=== PATIENT | male | born 1960 | race Caucasian/White ===

== ENCOUNTER 2016-08-01 03:51 | Inpatient (IN) | payer BC ==
[~2016-08-01] VITALS: Ht 172.7 cm; Wt 150.8 kg
[2016-08-01] VITALS (11 sets, daily range): BP systolic 94–119; BP diastolic 57–70
[~2016-08-01 03:51] MED LIST: AMOX-355 PO; CODE-54 PO; FURO-125 PO; GEMF600T3; HYDR-3702 PO; LISI20TA; LOSA1TAB70 PO; SULF-228 PO
[2016-08-01] MEDS ORDERED: SODIUM CHLORIDE 250 ML IV PRN (04:10)
[2016-08-01] MEDS ORDERED: SODIUM CHLORIDE FLUSH 10 ML SYR IV PRN (04:10)
[2016-08-01] MEDS ORDERED: SODIUM CHLORIDE FLUSH 3 ML SYR IV PRN (04:10)
[2016-08-01] MEDS ORDERED: ACETAMINOPHEN 500 MG TAB (TYLENOL) PO ONE (04:20)
[2016-08-01 04:54] LABS: BASOPHILS % (AUTO) 0 % (0-2); EOSINOPHILS % (AUTO) 1 % (0-4); LYMPHOCYTES # (AUTO) 0.8 X10^3; MEAN PLATELET VOLUME 10.7 FL (6.0-9.5); MONOCYTES # (AUTO) 0.6 X10^3; MONOCYTES % (AUTO) 7 % (3-11); NEUTROPHILS # (AUTO) 7.3 X10^3; NEUTROPHILS % (AUTO) 82 % (51-67); PLATELET COUNT 159 10^3uL (150-450)
[2016-08-01 04:58] LABS: MEAN CORPUSCULAR HGB CONC 31.4 g/dL (31.0-37.0); MEAN CORPUSCULAR VOLUME 105 FL (80-100)
[2016-08-01 05:10] LABS: ALBUMIN 4.2 g/dL (3.4-5.0); ALKALINE PHOSPHATASE 69 U/L (38-126); BUN/CREATININE RATIO 36 (10-20); CALCULATED IONIZED CALCIUM 3.8 mg/dL (3.8-4.6); CREATINE KINASE 171 U/L (55-170); TOTAL PROTEIN 7.3 g/dL (6.4-8.5)
--- NOTE | 2016-08-01 05:11 | NUR ---
Dr. Durham notified of elevated DDimer.
--- NOTE | 2016-08-01 06:30 | NUR ---
PT CONT ON OXYMASK. CL
--- NOTE | 2016-08-01 06:54 | NUR ---
report received & care assumed for pt. cl
--- NOTE | 2016-08-01 06:56 | NUR ---
Report given to Craig Mejia RN for continued care of pt
--- NOTE | 2016-08-01 07:00 | NUR ---
temp recheck = 96.6. pt O2 SAT 88% ON 5L/OXYMASK. O2 INCREASED TO 7L/OXYMASK. REMAINS AT BEDSIDE. PT AROUSABLE BUT LETHARGIC. ABLE TO UNDERSTAND DIRECTIONS. CL
--- NOTE | 2016-08-01 07:03 | NUR ---
STATES PT UNABLE TO GET STANDING UA BY HIMSELF SO SHE HELPED HIM OBTAIN THAT. DR LYNCH STATES HE WILL REVIEW UA FROM [facility] BEFORE WE NEED TO CATH PT TODAY. CL
[2016-08-01] MEDS ORDERED: PIPERACILLIN/TAZOBACTAM 4.5 GM in SODIUM CHLORIDE 100 ML IV ONE (07:10)
--- NOTE | 2016-08-01 07:17 | NUR ---
DR LYNCH TALKS WITH DR ROD. CL
--- NOTE | 2016-08-01 07:23 | Diagnostic Imaging Report ---
INDICATION: Weakness. FINDINGS: There is basilar atelectasis due to morbid obesity. No infiltrates are present. Heart is mildly enlarged. No evidence of pulmonary edema. No pneumothorax or pleural effusion. IMPRESSION: Bilateral basilar atelectasis. Dictated by: Dictated on workstation # [id number]
--- NOTE | 2016-08-01 07:24 | Diagnostic Imaging Report ---
PROCEDURE: CT angiography of the chest with contrast. TECHNIQUE: Multiple contiguous axial images were obtained through the chest after uneventful bolus administration of intravenous contrast. Reconstructed CTA MIP acquisitions were also performed. INDICATION: Hypoxia. FINDINGS: Study is quite limited due to large body habitus. There is suboptimal opacification of the pulmonary arteries. No evidence of emboli in the proximal branches. Distal PE cannot be excluded from this study. Mild basilar atelectasis noted bilaterally. No pneumothorax or pleural effusions. No pericardial effusions. No hilar adenopathy. IMPRESSION: Suboptimal enhancement of the pulmonary arteries. No large pulmonary emboli are noted. Could not exclude small distal PE from this study. There are no associated areas of atelectasis or infiltrate. Dictated by: Dictated on workstation # [id number]
--- NOTE | 2016-08-01 07:33 | NUR ---
UA HELD AT THIS TIME DR LYNCH STATES HE HAS REVIEWED [facility] UA & ANOTHER ONE IS NOT NEEDED TODAY. DR LYNCH TALKS WITH DR DAVENPORT RE PT ADMIT. LAB AT BEDSIDE ATTEMPTING BLOOD CULTURES. CL
--- NOTE | 2016-08-01 07:38 | NUR ---
LAB HAD BEEN HERE FOR OTHER LAB BLD CULTURES WERE PREVIOUSLY DRAWN ALREADY. CL
[2016-08-01] MEDS ORDERED: HYDROcodone/APAP 5 MG/325 MG (NORCO) TAB PO PRN ×2 (07:55→13:55)
[2016-08-01] MEDS ORDERED: PROMETHAZINE HCL INJ 12.5 MG in SODIUM CHLORIDE 25 ML IV PRN ×2 (08:00→09:00)
[2016-08-01] MEDS ORDERED: MAG HYDROX/AL HYDROX/SIMETH 200-200-20/5 ML (MAG-AL PLUS) 30 ML UDC PO PRN ×2 (08:00→14:00)
[2016-08-01] MEDS ORDERED: MAGNESIUM HYDROXIDE 80MG/ML (MILK OF MAGNESIA) 30 ML UDC PO PRN ×2 (08:00→09:00)
[2016-08-01] MEDS ORDERED: KETOROLAC 15 MG/ML (TORADOL) 1 ML VIAL IV PRN (08:00)
[2016-08-01] MEDS ORDERED: ONDANSETRON 4 MG (ZOFRAN) ORAL DISSOLVE TAB PO PRN ×2 (08:00→14:00)
[2016-08-01] MEDS ORDERED: POLYETHYLENE GLYCOL 17 GM (MIRALAX) PACKET PO PRN ×2 (08:00→09:00)
[2016-08-01] MEDS ORDERED: ACETAMINOPHEN 325 MG TAB (TYLENOL) PO PRN ×2 (08:00→14:00)
[2016-08-01] MEDS ORDERED: CALCIUM CARBONATE CHEWABLE 300 MG (TUMS) TABLET PO PRN ×2 (08:00→16:00)
[2016-08-01] MEDS ORDERED: DOCUSATE SODIUM 100 MG (COLACE) CAP PO PRN ×2 (08:00→09:00)
--- NOTE | 2016-08-01 08:05 | NUR ---
Pt admitted to room 317 via cart from ED, accompanied by and HANNAH Escamilla. O2 @7L oxymask. see admission datatbase.
[2016-08-01] MEDS ORDERED: ALBUTEROL 0.083% NEB SOLUTION 2.5 MG/3 ML VIAL INH PRN ×2 (08:15→12:15)
[2016-08-01] MEDS ORDERED: VANCOMYCIN PHARMACY PROTOCOL IV SCH ×2 (08:35)
[2016-08-01] MEDS ORDERED: VANCOMYCIN 1,000 MG in SODIUM CHLORIDE 250 ML IV ONE (08:35)
--- NOTE | 2016-08-01 08:40 | NUR ---
To room 345 per bed - transfer slide board to move to ICU bed - belongings sent - RT in room c BiPAP applied - see RT flowsheet - O2 75% - O2 sat 98% - no verbal response - tearful
--- NOTE | 2016-08-01 08:48 | History and Physical (E) ---
History & Physical PCP: Leatha Berry MD CC: Tooth infection, dyspnea, fever HPI Francisco Batres is a 56 year old male admitted from ED 08/01 where he presented for the second time in two days. On this visit, he was brought from home via EMS. 07/31 he was sen for tooth infection, and he was noted then to have hypoxia. He was given antibiotic for the tooth infectiona nd was prescribed oxygen for hypoxia but since leaving ED he has had further chills and has had low SpO2 at home reportedly. In ED this visit, temp 103.8, HR 115, RR 20, SpO2 initially 75%. WBC was not elevated but he had 82% N. Chemistry fairly unremarkable but CRP was 25.50. Pro-BNP 484. Troponin normal. Urine was not checked. CXR showed poor penetration, poor inspiration, left heart border is somewhat obscured. X-ray from the day prior was interpreted as having no focal pneumonia. CT chest angio was performed. On arrival to unit, resting in bed, He stirs to exam but appears tired with elevated work of breathing and he as a bit of trouble attending conversation, nodding off easily. reports he has slept poorly in the last few days. He does have a CPAP machine at home but reportedly hasn't been wearing... says they were instructed by Dr. Bowers that he should stop using it after a few weeks. provides some history. Regarding tooth infection, he had onset of symptoms 07/28. Had some pain. The next morning, she went to pharmacy and got some Ambisol. Affected tooth is left lower molar. Pain did not improve so he came to ER. (Had not called a dentist but says they plan to call [facility].) Has had fever/chills at home. Has not had drainage or pus from infected tooth. Denies pain in neck. Noted he has plethoric facies, non-productive cough, wheezing, and increased work of breathing. says breathing problems seemed to only just start yesterday. Cough has been ongoing that is worsening x 2-3 months. No prior diagnosis of asthma or COPD. Has never had PFT. Noted that he had ABG showing pCO2 of 60 yesterday but this wasn't addressed. PMH * BLE Edema * Dental abscess * Dyspnea * Cough * MADAN on CPAP * HTN PSH * Hernia repair ALLERGIES: Please see list at end of report. HOME MEDICATIONS: Please see list at end of report. FH Mom of liver cancer. Father of stroke. SH Lives with in [place]. No children. 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 Never smoker. No alcohol or drug use. ROS CONSTITUTION: Weight has been stable. HEENT: No change in vision or hearing. No sores in mouth, sore throat. Dental issues per HPI, exam. CV: No chest pain, palpitations. PULM: Per HPI, exam. GI: No upset stomach, nausea, vomiting, constipation, or diarrhea. No blood in stool. : No dysuria. No blood in urine. MS: No new muscle or joint aches and pains. NEURO: No numbness or tingling. No weakness. INTEG: No rashes, lesions, or sores. ENDO: No heat or cold intolerance. No polydipsia or polyuria. HEME/LYMPH: No easy bruising or bleeding. No swollen glands. PSYCH: No change in mood or behavior. OBJECTIVE Vital Signs Date Time Temp Pulse Resp B/P Pulse Ox O2 Delivery O2 Flow Rate FiO2 08/01/16 06:31 94 OxyMask 5 08/01/16 05:32 97.6 08/01/16 05:30 104 20 109/75 GEN: Somnolent. Nods off readily during exam. Respiratory distress. HEENT: Eyes closed but on exam, EOMI, pupils reactive. Plethoric facies. Thick neck. Dusky lips. Somewhat dry oral mucosa. Difficult to obtain oral exam because of somnolence but he has halitosis. CV: Tachy but regular without significant murmur. LUNGS: Diminished throughout with rales in right base. ABD: Morbidly obese but abdomen is soft, not apparently tender. Active bowel sounds. EXTR: 2+ BLE pitting edema without chronic venous stasis changes. INTEG: No rash. Plethora of face. Integument is warm, dry, well-perfused. NEURO: No focal motor neuro deficit but psychomotor slowing. Somnolent, Stirs to exam but has difficulty staying away. Laboratory Results-14 Days 08/01/16 04:30: Activated Partial Thromboplast Time 31.0, Alanine Aminotransferase (ALT/SGPT) 41 , Albumin 4.2, Albumin/Globulin Ratio 1.354, Alkaline Phosphatase 69, Anion Gap 8.0, Aspartate Amino Transf (AST/SGOT) 30, BUN/Creatinine Ratio 36H, Basophils # (Auto) 0.0, Basophils (%) (Auto) 0, Blood Urea Nitrogen 24H, C-Reactive Protein 25.50H, Calcium Level 8.7L, Calcium/Ionized Calcium Ratio 3.8, Calculated Osmolality 273L, Carbon Dioxide Level 38H, Chloride Level 92L, Creatine Kinase MB 1.7, Creatinine 0.66L, D-Dimer 1331*H, Eosinophils # (Auto) 0.0, Eosinophils (%) (Auto) 1, Estimat Glomerular Filtration Rate 151.6, Estimated GFR (Non- 125.3, Glucose Level 137#H, Hematocrit 52.30H, Hemoglobin 16.4, Lymphocytes # (Auto) 0.8, Lymphocytes (%) (Auto) 9L, Mean Corpuscular Hemoglobin 33.0, Mean Corpuscular Hemoglobin Concent 31.4, Mean Corpuscular Volume 105H, Mean Platelet Volume 10.7H, Monocytes # (Auto) 0.6 , Monocytes (%) (Auto) 7, PH-Qpl-L-Type Natriuretic Peptide 484H, Neutrophils # (Auto) 7.3, Neutrophils (%) (Auto) 82H, Platelet Count 159, Potassium Level 4.6 , Prothromb Time International Ratio 1.1, Prothrombin Time 12.8H, Red Blood Count 4.97, Red Cell Distribution Width 13.7, Sodium Level 138, Total Bilirubin 0.9, Total Creatine Kinase 171H, Total Protein 7.3, Troponin I < 0.012, White Blood Count 8.80 08/01: ABG: pH 7.18, pCO2 106, pO2 81 MICRO 08/01 Blood culture PENDING 07/31 Blood culture Negative to date IMAGING 08/01/2016 CT CHEST ANGIO PRELIM: IMPRESSION: No evidence of central or proximal pulmonary embolism. Evaluation of distal branches is limited by artifact. Enlarged pulmonary artery may be seen in the setting of pulmonary hypertension. Low lung volumes. Elevated right hemidiaphragm. No airspace consolidation. No pleural or pericardial effusion. No aortic aneurysm or dissection. 08/01/2016 CXR: PENDING 07/31/16 CHEST PA/LAT (2 VIEW)* INDICATION: Weakness and shortness of breath. COMPARISON: None. FINDINGS: 2 views of the chest are obtained. Lung volumes are low. Heart size is enlarged. There is mild prominence of pulmonary venous structures. There is no pneumothorax or pleural fluid. There is moderate elevation of the right hemidiaphragm. No focal pneumonia is suspected. Osseous structures appear unremarkable. IMPRESSION: 1. Low lung volumes and elevation of the right hemidiaphragm. 2. Cardiomegaly without evidence of failure. 3. No focal pneumonia or other acute abnormality is suspected. ASSESSMENT Francisco Batres is a 56 year old male admitted from ED 08/01 with acute hypoxic hypercapnic respiratory failure with SIRS/sepsis attributed to dental infection but also possible CAP. He likely has underlying COPD, has poorly treated MADAN, and probably has obesity hypoventilation syndrome. He has other chronic problems. PLAN * SIRS/Sepsis: Treating underlying causes including dental abscess but possibly CAP. * Acute Hypoxic, Hypercapneic Respiratory Failure: Emergent transfer to ICU. Trial of bipap. ABG in 1 hour. If not significantly improved, intubate. * Community Acquired Pneumonia: Clinical diagnosis on the basis of sepsis findings, respiratory failure, cough. Treat COPD exacerbation. Guaifenesin. Empiric pip-tazo and vanco. * COPD with Acute Exacerbation: Clinical diagnosis on the basis of history. Duoneb scheduled, albuterol PRN. Guaifenesin. Methylprednisolone with transition to prednisone. * Dental Infection: Blood culture negative to date. New culture obtained 08/01. Had been prescribed amox/clav 07/31. In ED 08/01, received pip-tazo and ceftriaxone. Continued IV antibiotic as noted above. * Altered Mental Status: Due to respiratory failure. * Dental Pain: Hydrocodone/acetaminophen on hold. Narcotic on hold due to sedated status. * Fever: Acetaminophen * Pulmonary Hypertension: Continue oxygen. Check echo. * BLE Edema: Uncertain etiology. Minimal evidence for heart failure based on CXR , pro-BNP. Check echo. Compression hose. Diuresis deferred due to NPO status. * F/E/N: NPO due to respiratory failure. IVF. Peripheral IV. * Prophylaxis: Enoxaparin * Code Status: Full * Dispo: Inpatient. Immediately transferred to ICU for respiratory failure. CHRONIC ISSUES * MADAN: CPAP/BiPAP * HTN: Losartan, HCTZ on hold. Allergies/Home Medications Allergies: Coded Allergies: No Known Drug Allergies (Unverified , 06/17/13) Reported Home Medications Scheduled Amoxicillin/Clavulanate Potassium (Augmentin 500mg/125mg) 1 EACH PO 3 times a day Furosemide (Lasix) 20 MG PO DAILY (Reported) Losartan/Hydrochlorothiazide (Losartan-HCTZ 100-25 mg Tab) 1 EACH PO DAILY ( Reported) Scheduled PRN Hydrocodone/Acetaminophen ([place] 5mg/325mg) 1-2 TAB PO Q6H PRN PRN PAIN Discontinued Medications Acetaminophen/Codeine (Tylenol W/Codeine #3 (300mg/30mg)) 1 TAB PO Q6H Discontinued Reason: Course completed Gemfibrozil (Gemfibrozil) (Reported) Discontinued Reason: Course completed Lisinopril (Prinivil 20 mg) (Reported) Discontinued Reason: Course completed Trimethoprim/Sulfamethoxazole (Bactrim Ds) 1 EA PO BID Discontinued Reason: Course completed Copies to: End of Report . EBONI ROD MD Aug 01, 2016 07:29
--- NOTE | 2016-08-01 08:55 | NUR ---
Dr Real in room - LS dim throughout anteriorly - responds to painful stimuli - O2 sat 98%
[2016-08-01] MEDS ORDERED: HYDROCHLOROTHIAZIDE 25 MG (HCTZ) TAB PO SCH (09:00)
[2016-08-01] MEDS ORDERED: guaiFENesin ER 600 MG (MUCINEX) TAB PO SCH (09:00)
[2016-08-01] MEDS ORDERED: LOSARTAN 100 MG (COZAAR) TABLET PO SCH (09:00)
[2016-08-01] MEDS ORDERED: ENOXAPARIN 40 MG/0.4 ML (LOVENOX) SYR SC SCH ×2 (09:00)
[2016-08-01] MEDS: guaiFENesin ER 600 MG (MUCINEX) TAB PO SCH ×2 (09:00→20:53)
[2016-08-01 09:01] LABS: ABG PCO2 106 mmHg (35-45); ABG PH 7.18 (7.35-7.45); ABG PO2 81 mmHg (80-105)
[2016-08-01 09:02] LABS: ABG OXYGEN SATURATION 91 % (95-98)
--- NOTE | 2016-08-01 09:03 | NUR ---
NS hung to infuse @ 125 mL/hr per [facility]
[2016-08-01] MEDS: methylPREDNISolone 125 MG (Solu-MEDROL) VIAL IV SCH ×2 (09:11→20:52)
--- NOTE | 2016-08-01 09:11 | NUR ---
Solu - Medrol 125 mg IV push over 3 minutes
[2016-08-01] MEDS: ALBUTEROL/IPRATROPIUM 3MG-0.5MG/3ML (DUONEB) NEB VIAL INH SCH ×3 (09:15→21:09)
[2016-08-01] MEDS ORDERED: VANCOMYCIN COMPOUNDED BY PHARMACY IV SCH (09:15)
--- NOTE | 2016-08-01 09:18 | NUR ---
Vancomycin Dosing: Pharmacy managed S: SIRS/Sepsis: Attributed to dental abcess, possibly pneumonia. Cultures pending. Empirically treating with Pip/Tazo and vancomycin. O: 56y/o M, wt = 154 kg, SCr = 0.66 CrCl = >150 ml/min A/P: Vancomycin 2000mg IV q8hr. Predicted trough of 16.3 mcg/mL for therapeutic goal of 15-20mcg/ml. Trough to be drawn before 5th dose (08-02-16 @ 1730). Will monitor and adjust if needed.
[2016-08-01] MEDS: VANCOMYCIN 2000 MG in NS IV 480 ML IV SCH ×2 (09:29→17:59)
--- NOTE | 2016-08-01 09:29 | NUR ---
Vanco 2 gm IV to infuse @ 165 mL/hr
--- NOTE | 2016-08-01 09:40 | NUR ---
#16 Little inserted - see intervention
--- NOTE | 2016-08-01 10:00 | NUR ---
BiPAP O2 decreased to 70%
[2016-08-01 10:19] LABS: ABG OXYGEN SATURATION 96 % (95-98); ABG PCO2 92 mmHg (35-45); ABG PH 7.28 (7.35-7.45); ABG PO2 95 mmHg (80-105)
[2016-08-01 10:29] LABS: BILIRUBIN,URINE Negative (Negative); CLARITY,URINE Clear; COLOR,URINE Yellow; GLUCOSE, URINE (UA) Negative (Negative); LEUKOCYTE ESTERASE ,URINE Negative (Negative); PH,URINE 5.5 (5.0 - 8.0); UROBILINOGEN,URINE 0.2 mg/dL (0.2-1.0)
--- NOTE | 2016-08-01 10:32 | NUR ---
MED REC COMPLETED-current med list obtained from Ext Med History application.
[2016-08-01 10:52] LABS: URINE CENTRIFUGED VOLUME 12 mL
[2016-08-01] MEDS ORDERED: ALBUTEROL/IPRATROPIUM 3MG-0.5MG/3ML (DUONEB) NEB VIAL INH SCH (11:00)
[2016-08-01] MEDS ORDERED: SODIUM CHLORIDE IV SCH (12:00)
[2016-08-01] MEDS ORDERED: SULBACTAM IV SCH (12:00)
[2016-08-01] MEDS ORDERED: AMPICILLIN IV SCH (12:00)
[2016-08-01 12:58] LABS: ALBUMIN 4.1 g/dL (3.4-5.0); PHOSPHORUS 4.3 mg/dL (2.4-4.9)
[2016-08-01 13:06] LABS: ANION GAP 12.9 MEQ/L (3-15)
[2016-08-01] MEDS: PIPERACILLIN/TAZOBACTAM 4.5 GM in SODIUM CHLORIDE 100 ML IV SCH ×2 (14:29→21:47)
--- NOTE | 2016-08-01 14:30 | NUR ---
Cares --> diaphoretic --> linens soaked - repositioned --- BiPAP off due to coughing up copious amounts or tenacious light yellow secretions - O2 sats decrease rapidly while mask off face - RT in room O2 applied per mask during cares - linens changed - repositioned in bed - in room offering support and helping orient patient - Little draining dark reddish boothe yellow urine - reports "I can always tell when he has a urinary tract infection his urine gets real yellow" -- hollers out "I need to pee"
[2016-08-01] MEDS: KETOROLAC 15 MG/ML (TORADOL) 1 ML VIAL IV PRN (16:18)
--- NOTE | 2016-08-01 16:25 | NUR ---
Toradol 15 mg slow IV push for restlessness and diaphoretic - @ bedside
[2016-08-02] VITALS (9 sets, daily range): BP systolic 91–115; BP diastolic 52–69
--- NOTE | 2016-08-02 00:33 | NUR ---
re evaluated patient when doing oral care and repositioning. patient readily awakened and was able to tell me where he was, the year, and why he was in the hospital. he said he was tired but in no pain, patient also denied shortness of breath or chest pain.
[2016-08-02] MEDS: VANCOMYCIN 2000 MG in NS IV 480 ML IV SCH ×3 (01:41→18:00)
[2016-08-02] MEDS: ALBUTEROL/IPRATROPIUM 3MG-0.5MG/3ML (DUONEB) NEB VIAL INH SCH ×4 (03:02→22:19)
[2016-08-02] MEDS ORDERED: SODIUM CHLORIDE FLUSH 3 ML SYR IV PRN ×2 (04:10)
[2016-08-02] MEDS ORDERED: SODIUM CHLORIDE FLUSH 10 ML SYR IV PRN (04:10)
[2016-08-02] MEDS: PIPERACILLIN/TAZOBACTAM 4.5 GM in SODIUM CHLORIDE 100 ML IV SCH ×2 (05:54→14:44)
[2016-08-02 06:09] LABS: ABG PH 7.19 (7.35-7.45)
[2016-08-02 06:10] LABS: ABG OXYGEN SATURATION 97 % (95-98); ABG PCO2 101 mmHg (35-45); ABG PO2 117 mmHg (80-105)
[2016-08-02] MEDS: KETOROLAC 15 MG/ML (TORADOL) 1 ML VIAL IV PRN (06:29)
[2016-08-02 06:45] LABS: MEAN PLATELET VOLUME 10.2 FL (6.0-9.5); PLATELET COUNT 147 10^3uL (150-450); WHITE BLOOD COUNT 6.17 10^3uL (4.0-11.0)
[2016-08-02 06:50] LABS: MEAN CORPUSCULAR HEMOGLOBIN 32.6 PG (26.0-34.0); MEAN CORPUSCULAR HGB CONC 30.1 g/dL (31.0-37.0); MEAN CORPUSCULAR VOLUME 109 FL (80-100)
[2016-08-02 06:53] LABS: BAND NEUTROPHILS % 2 % (0-6); EOSINOPHILS % 0 % (0-4); LYMPHOCYTES # 0.4 #; MONOCYTES # 0.1 #; MONOCYTES % 1 % (3-11); RBC MORPH NORMAL (NORMAL); SEGMENTED NEUTROPHILS % 90 % (51-67); TOTAL CELLS COUNTED 100
[2016-08-02 07:17] LABS: ALBUMIN 3.8 g/dL (3.4-5.0); ANION GAP 11.5 MEQ/L (3-15); PHOSPHORUS 3.8 mg/dL (2.4-4.9)
[2016-08-02] MEDS ORDERED: HYDROcodone/APAP 5 MG/325 MG (NORCO) TAB PO PRN (08:15)
--- NOTE | 2016-08-02 08:20 | Progress Note (E) ---
Progress Note SUBJECTIVE Overnight, no major issues reported but noted this AM ABG is worse than previous. Mental status is better, though. WBC is not elevated. 90% N with 2% B. Chemistry stable though noted K = 5.0. Blood culture negative to date. Had planned transfer out of ICU but deferred due to worse ABG. Overnight physician increased iPAP from 18 to 22. On exam, he is much more alert and interactive. Despite being on BiPAP he is able to answer questions. Oriented. Complains of feeling chilled at times but has not had fever. Discussed findings, plan fo care. OBJECTIVE Vital Signs Date Time Temp Pulse Resp B/P Pulse Ox O2 Delivery O2 Flow Rate FiO2 08/02/16 05:32 87 08/02/16 04:09 97.0 16 107/69 97 Bipap machine 70.00 I & O 08/01/16 08/02/16 Cumulative From/Thru 19:00 07:00 08/01/16 04:30 - 08/02/16 06:01 Intake Total 762 ml 2000 ml 2762 ml Output Total 550 ml 900 ml 1450 ml Balance 212 ml 1100 ml 1312 ml GEN: More alert and interactive. Tolerating BiPAP well. HEENT: EOMI, pupils reactive. Plethoric facies. Thick neck. Somewhat dry oral mucosa. Halitosis CV: Tachycardia resolved. Distant heart sounds. SR on tele. LUNGS: Diminished throughout.No audible rales. ABD: Morbidly obese, mildly distended, but abdomen is soft, not apparently tender. Active bowel sounds. EXTR: 2+ BLE pitting edema without chronic venous stasis changes. INTEG: No rash. Plethora of face. Integument is warm, dry, well-perfused. NEURO: No focal motor neuro deficit. Lab-Past 14 Days, 35 Results 08/01/16 04:30: Activated Partial Thromboplast Time 31.0, Alanine Aminotransferase (ALT/SGPT) 41 , Albumin 4.2, Albumin/Globulin Ratio 1.354, Alkaline Phosphatase 69, Anion Gap 8.0, Aspartate Amino Transf (AST/SGOT) 30, BUN/Creatinine Ratio 36H, Basophils # (Auto) 0.0, Basophils (%) (Auto) 0, Blood Urea Nitrogen 24H, C-Reactive Protein 25.50H, Calcium Level 8.7L, Calcium/Ionized Calcium Ratio 3.8, Calculated Osmolality 273L, Carbon Dioxide Level 38H, Chloride Level 92L, Creatine Kinase MB 1.7, Creatinine 0.66L, D-Dimer 1331*H, Eosinophils # (Auto) 0.0, Eosinophils (%) (Auto) 1, Estimat Glomerular Filtration Rate 151.6, Estimated GFR (Non- 125.3, Glucose Level 137#H, Hematocrit 52.30H, Hemoglobin 16.4, Lymphocytes # (Auto) 0.8, Lymphocytes (%) (Auto) 9L, Mean Corpuscular Hemoglobin 33.0, Mean Corpuscular Hemoglobin Concent 31.4, Mean Corpuscular Volume 105H, Mean Platelet Volume 10.7H, Monocytes # (Auto) 0.6 , Monocytes (%) (Auto) 7, MD-Yrx-J-Type Natriuretic Peptide 484H, Neutrophils # (Auto) 7.3, Neutrophils (%) (Auto) 82H, Platelet Count 159, Potassium Level 4.6 , Prothromb Time International Ratio 1.1, Prothrombin Time 12.8H, Red Blood Count 4.97, Red Cell Distribution Width 13.7, Sodium Level 138, Total Bilirubin 0.9, Total Creatine Kinase 171H, Total Protein 7.3, Troponin I < 0.012, White Blood Count 8.80 08/01/16 07:47: Lactic Acid Level 0.7 08/01/16 08:12: Gagandeep Test n/a, Arterial Blood Base Excess 12.0H, Arterial Blood HCO3 40.2H, Arterial Blood Oxygen Saturation 91L, Arterial Blood Partial Pressure CO2 106*H , Arterial Blood Partial Pressure O2 81, Arterial Blood Total CO2 43.0H, Arterial Blood pH 7.18*L, Blood Gas Liter Flow 7.0, Blood Gas Puncture Site R radial 08/01/16 09:45: Urine Bacteria None seen, Urine Bilirubin Negative, Urine Clarity Clear, Urine Collection Type Clean catch, Urine Color Yellow, Urine Glucose (UA) Negative, Urine Ketones Negative, Urine Leukocyte Esterase Negative, Urine Mucus Rare, Urine Nitrite Negative, Urine Protein 1+H, Urine RBC 2-5, Urine RBC (Auto) 2+H, Urine Specific [place] 1.020, Urine Squamous Epithelial Cells 2-5, Urine Urobilinogen 0.2, Urine WBC None seen, Urine pH 5.5, Volume Urine Centrifuged 12 ml 08/01/16 10:00: Gagandeep Test N/a, Arterial Blood Base Excess 17.0H, Arterial Blood HCO3 43.5H, Arterial Blood Oxygen Saturation 96, Arterial Blood Partial Pressure CO2 92*H, Arterial Blood Partial Pressure O2 95, Arterial Blood Total CO2 46.0H, Arterial Blood pH 7.28L, Blood Gas EPAP 5, Blood Gas IPAP 18, Blood Gas Puncture Site R radial, FiO2 % 75.0 08/01/16 12:38: Albumin 4.1, Anion Gap 12.9, Blood Urea Nitrogen 23H, Calcium Level 8.5L, Carbon Dioxide Level 38H, Chloride Level 95L, Creatinine 0.65L, Estimat Glomerular Filtration Rate 154.3, Estimated GFR (Non- 127.5, Glucose Level 133H, Phosphorus Level 4.3, Potassium Level 5.0, Sodium Level 141 08/02/16 06:00: Gagandeep Test pos, Arterial Blood Base Excess 10.0H, Arterial Blood HCO3 38.0H, Arterial Blood Oxygen Saturation 97, Arterial Blood Partial Pressure CO2 101*H, Arterial Blood Partial Pressure O2 117H, Arterial Blood Total CO2 41.0H, Arterial Blood pH 7.19L, Blood Gas EPAP 5, Blood Gas IPAP 18, Blood Gas Puncture Site rra, FiO2 % 70.0 08/02/16 06:37: Albumin 3.8, Anion Gap 11.5, Blood Urea Nitrogen 23H, Calcium Level 8.4L, Carbon Dioxide Level 40H, Chloride Level 97L, Creatinine 0.65L, Estimat Glomerular Filtration Rate 154.3, Estimated GFR (Non- 127.5, Glucose Level 162#H, Phosphorus Level 3.8, Potassium Level 5.0, Sodium Level 143 , Absolute Band Neutrophils 0.1, Band Neutrophils % 2, Basophils # (Auto) , Basophils # (Manual) 0.0, Basophils % (Manual) 0, Basophils (%) (Auto) , Blood Morphology Comment Normal, C-Reactive Protein [Pending], Differential Total Cells Counted 100, Eosinophils # 0.0, Eosinophils # (Auto) , Eosinophils % ( Manual) 0, Eosinophils (%) (Auto) , Hematocrit 52.20H, Hemoglobin 15.7, Lymphocytes # 0.4, Lymphocytes # (Auto) , Lymphocytes % (Manual) 7L, Lymphocytes (%) (Auto) , Mean Corpuscular Hemoglobin 32.6, Mean Corpuscular Hemoglobin Concent 30.1L, Mean Corpuscular Volume 109H, Mean Platelet Volume 10.2H, Metamyelocytes % 0, Monocytes # 0.1, Monocytes # (Auto) , Monocytes % ( Manual) 1L, Monocytes (%) (Auto) , Neutrophils # 5.6, Neutrophils # (Auto) , Neutrophils (%) (Auto) , Platelet Count 147L, Red Blood Count 4.81, Red Cell Distribution Width 13.4, Segmented Neutrophils % 90H, White Blood Count 6.17 MICRO 08/01 Blood culture PENDING 07/31 Blood culture Negative to date IMAGING 08/01/16 CT ANGIO CHEST W PROCEDURE: CT angiography of the chest with contrast. TECHNIQUE: Multiple contiguous axial images were obtained through the chest after uneventful bolus administration of intravenous contrast. Reconstructed CTA MIP acquisitions were also performed. INDICATION: Hypoxia. FINDINGS: Study is quite limited due to large body habitus. There is suboptimal opacification of the pulmonary arteries. No evidence of emboli in the proximal branches. Distal PE cannot be excluded from this study. Mild basilar atelectasis noted bilaterally. No pneumothorax or pleural effusions. No pericardial effusions. No hilar adenopathy. IMPRESSION: Suboptimal enhancement of the pulmonary arteries. No large pulmonary emboli are noted. Could not exclude small distal PE from this study. There are no associated areas of atelectasis or infiltrate. 08/01/16 CHEST 1 VIEW, AP/PA ONLY* INDICATION: Weakness. FINDINGS: There is basilar atelectasis due to morbid obesity. No infiltrates are present. Heart is mildly enlarged. No evidence of pulmonary edema. No pneumothorax or pleural effusion. IMPRESSION: Bilateral basilar atelectasis. 07/31/16 CHEST PA/LAT (2 VIEW)* INDICATION: Weakness and shortness of breath. COMPARISON: None. FINDINGS: 2 views of the chest are obtained. Lung volumes are low. Heart size is enlarged. There is mild prominence of pulmonary venous structures. There is no pneumothorax or pleural fluid. There is moderate elevation of the right hemidiaphragm. No focal pneumonia is suspected. Osseous structures appear unremarkable. IMPRESSION: 1. Low lung volumes and elevation of the right hemidiaphragm. 2. Cardiomegaly without evidence of failure. 3. No focal pneumonia or other acute abnormality is suspected. ASSESSMENT Francisco Batres is a 56 year old male admitted from ED 08/01 with acute hypoxic hypercapnic respiratory failure with SIRS/sepsis attributed to dental infection but also possible CAP. He likely has underlying COPD, has poorly treated MADAN, and probably has obesity hypoventilation syndrome. He has other chronic problems. PLAN * SIRS/Sepsis: Treating underlying causes including dental abscess but possibly CAP. * Acute Hypoxic, Hypercapneic Respiratory Failure: Emergent transfer to ICU on admit. Immediately placed on bipap with some objective and subjective improvement. Monitor clinical status closely in ICU. * Community Acquired Pneumonia: Clinical diagnosis on the basis of sepsis findings, respiratory failure, cough. Treat COPD exacerbation. Guaifenesin. Empiric pip-tazo and vanco. * COPD with Acute Exacerbation: Clinical diagnosis on the basis of history. Duoneb scheduled, albuterol PRN. Guaifenesin. Methylprednisolone with transition to prednisone. * Dental Infection: Blood culture negative to date. New culture obtained 08/01. Had been prescribed amox/clav 07/31. In ED 08/01, received pip-tazo and ceftriaxone. Continued IV antibiotic as noted above. * Altered Mental Status: Improving. Due to respiratory failure. * Dental Pain: Hydrocodone/acetaminophen. Monitor mental status closely. * Fever: Acetaminophen * Pulmonary Hypertension: Continue oxygen. Check echo. * BLE Edema: Uncertain etiology. Minimal evidence for heart failure based on CXR , pro-BNP. Check echo. Compression hose. Diuresis deferred due to NPO status. * F/E/N: Full liquid diet. IVF stopped 08/02. Peripheral IV. * Prophylaxis: Enoxaparin * Code Status: Full * Dispo: Inpatient. ICU status still. CHRONIC ISSUES * MADAN: CPAP/BiPAP * HTN: Losartan, HCTZ on hold. EBONI ROD MD Aug 02, 2016 07:41
--- NOTE | 2016-08-02 08:50 | NUR ---
Pt is aasisted up to the recliner x2 person. Patient was able to assist in transfer and tolerated well. Pt was placed on an oxymask @ 10 liters. Patient denies pain or needs
[2016-08-02] MEDS ORDERED: SODIUM CHLORIDE FLUSH 3 ML SYR IV SCH (09:00)
[2016-08-02] MEDS: methylPREDNISolone 125 MG (Solu-MEDROL) VIAL IV SCH ×2 (09:15→21:10)
[2016-08-02] MEDS: guaiFENesin ER 600 MG (MUCINEX) TAB PO SCH ×2 (09:16→21:09)
--- NOTE | 2016-08-02 09:53 | NUR ---
Pt found sitting in his chair on 10 l/min OM eating breakfast, SPO2 91%, RR 18, HR 71 diminished fine crackles throughout all BS. Duoneb given via SVN/MASK tolerated well with no changes in BS post Tx. BiPAP titrated to 14/5 to obtain Vt of about [address] Mary Kayine
--- NOTE | 2016-08-02 10:20 | NUR ---
Patient transfered back to bed and placed on BiPap with settings titrated down to 15/5. Patient appears to be tolerating settind changes well. Patient denies pain and needs.
[2016-08-02 11:56] LABS: ABG PH 7.27 (7.35-7.45)
[2016-08-02 11:57] LABS: ABG PCO2 83 mmHg (35-45); ABG PO2 85 mmHg (80-105)
[2016-08-02 11:58] LABS: ABG OXYGEN SATURATION 94 % (95-98)
[2016-08-02 11:59] LABS: ARTERIAL BLOOD GAS VENT MODE ST
--- NOTE | 2016-08-02 13:08 | NUR ---
Patient is back up in recliner with noon meal in place. Patient is A&O. Patient is on 10 liters of O2 per oxy mask. Patient denies pain and needs.
[2016-08-02] MEDS: SODIUM CHLORIDE FLUSH 10 ML SYR IV PRN ×3 (13:53→21:11)
--- NOTE | 2016-08-02 14:00 | NUR ---
Patient placed back in bed from recliner and Bipap placed back on. Patient is A&O. Patient transfered to bed with standby assist. Patient denies pain and needs.
--- NOTE | 2016-08-02 15:03 | NUR ---
Pt found lying in bed on BiPAP, 15/5, 70% FIO2, SPO2 100%, RR 18 , HR 85, BS coarse and diminished throughout. Duoneb given in line on BiPAP which was tolerated well with no change in BS post Tx. FIO2 titrated to 60%. No other changes made at this time.
--- NOTE | 2016-08-02 16:29 | NUR ---
MULTIDISCIPLINARY MTG/DR. ROD: Pt. admitted for SIRS/Sepsis due to a dental infection, respiratory failure and untreated COPD. Pt. is requiring a bipap at this time. Pt. ABG at noon improved. Pt. is on a liquid diet. Pt. received toradol this morning for a headache but hasn't had any complaints of pain since. Pt. is receiving broad spectrum antibiotics. Pt. will hopefully be off bipap tomorrow and moved to med/surg floor. No discharge needs identified at this time.
--- NOTE | 2016-08-02 17:01 | NUR ---
Patient is in bed and appears asleep. Patient continues on Bipapwith settings of 15/5 and 60% FiO2. Patient oopens etes to gentle shaking. Patient continues to deny pain or needs.
[2016-08-02] MEDS ORDERED: ENOXAPARIN 40 MG/0.4 ML (LOVENOX) SYR SC SCH (21:00)
[2016-08-03] VITALS: BP 96/56
[2016-08-03] MEDS ORDERED: SODIUM CHLORIDE 100 ML ONE ×2 (00:23→18:02)
[2016-08-03] MEDS: PIPERACILLIN/TAZOBACTAM 4.5 GM in SODIUM CHLORIDE 100 ML IV SCH ×2 (01:04→18:40)
[2016-08-03 02:00] VITALS: BP 115/59
[2016-08-03] MEDS: ALBUTEROL/IPRATROPIUM 3MG-0.5MG/3ML (DUONEB) NEB VIAL INH SCH ×4 (04:24→22:46)
[2016-08-03] MEDS: VANCOMYCIN 2000 MG in NS IV 480 ML IV SCH (05:42)
[2016-08-03 05:56] VITALS: BP 87/65
[2016-08-03 06:18] LABS: MEAN CORPUSCULAR HGB CONC 32.3 g/dL (31.0-37.0); MEAN PLATELET VOLUME 10.2 FL (6.0-9.5); PLATELET COUNT 153 10^3uL (150-450); WHITE BLOOD COUNT 9.03 10^3uL (4.0-11.0)
[2016-08-03 06:22] LABS: MEAN CORPUSCULAR VOLUME 105 FL (80-100)
[2016-08-03 06:31] LABS: BAND NEUTROPHILS % 0 % (0-6); EOSINOPHILS % 0 % (0-4); LYMPHOCYTES # 0.8 #; MONOCYTES # 0.1 #; MONOCYTES % 1 % (3-11); RBC MORPH NORMAL (NORMAL); SEGMENTED NEUTROPHILS % 90 % (51-67); TOTAL CELLS COUNTED 100
[2016-08-03 06:58] LABS: ALBUMIN 3.3 g/dL (3.4-5.0); ANION GAP 11.6 MEQ/L (3-15); PHOSPHORUS 3.2 mg/dL (2.4-4.9)
--- NOTE | 2016-08-03 07:00 | NUR ---
Report received from Rekha YOUNG and care assumed. Pt is on Bipap and appears to be sleeping at this time. Little catheter patent to DDD. IV Vanco infusing per pump.
[2016-08-03] MEDS ORDERED: COMPOUNDED BY PHARMACY IV SCH (07:40)
--- NOTE | 2016-08-03 07:47 | Progress Note (E) ---
Progress Note SUBJECTIVE Overnight, no major issues. Tolerates bipap. Mental status continues to improve. ABG from yesterday afternoon showed better pCO2. WBC remains stable. CRP well-trending down. One of two blood cultures had turned positive and PCR showed Staph, not Staph aureus. Suspect contaminant. Transferring out of ICU today. OBJECTIVE Vital Signs Date Time Temp Pulse Resp B/P Pulse Ox O2 Delivery O2 Flow Rate FiO2 08/03/16 05:56 97.3 76 26 87/65 95 Bipap machine 08/02/16 16:53 60.00 I & O 08/02/16 08/03/16 Cumulative From/Thru 19:00 07:00 08/01/16 04:30 - 08/03/16 06:02 Intake Total 5873 ml 1487 ml 02689 ml Output Total 600 ml 2200 ml 4250 ml Balance 5273 ml -713 ml 5872 ml GEN: This AM, sleeping well with BiPap on. HEENT: Eyes closed. Bipap mask tolerated well. CV: Regular without significant murmur. LUNGS: Good breath sounds throughout. No R/R/W. ABD: Morbidly obese, mildly distended, but abdomen is soft, not apparently tender. Active bowel sounds. EXTR: 2+ BLE pitting edema without chronic venous stasis changes. INTEG: No rash. Plethora of face. Integument is warm, dry, well-perfused. NEURO: No focal motor neuro deficit. Lab-Past 14 Days, 35 Results 08/01/16 04:30: Activated Partial Thromboplast Time 31.0, Alanine Aminotransferase (ALT/SGPT) 41 , Albumin 4.2, Albumin/Globulin Ratio 1.354, Alkaline Phosphatase 69, Anion Gap 8.0, Aspartate Amino Transf (AST/SGOT) 30, BUN/Creatinine Ratio 36H, Basophils # (Auto) 0.0, Basophils (%) (Auto) 0, Blood Urea Nitrogen 24H, C-Reactive Protein 25.50H, Calcium Level 8.7L, Calcium/Ionized Calcium Ratio 3.8, Calculated Osmolality 273L, Carbon Dioxide Level 38H, Chloride Level 92L, Creatine Kinase MB 1.7, Creatinine 0.66L, D-Dimer 1331*H, Eosinophils # (Auto) 0.0, Eosinophils (%) (Auto) 1, Estimat Glomerular Filtration Rate 151.6, Estimated GFR (Non- 125.3, Glucose Level 137#H, Hematocrit 52.30H, Hemoglobin 16.4, Lymphocytes # (Auto) 0.8, Lymphocytes (%) (Auto) 9L, Mean Corpuscular Hemoglobin 33.0, Mean Corpuscular Hemoglobin Concent 31.4, Mean Corpuscular Volume 105H, Mean Platelet Volume 10.7H, Monocytes # (Auto) 0.6 , Monocytes (%) (Auto) 7, NC-Rrs-Y-Type Natriuretic Peptide 484H, Neutrophils # (Auto) 7.3, Neutrophils (%) (Auto) 82H, Platelet Count 159, Potassium Level 4.6 , Prothromb Time International Ratio 1.1, Prothrombin Time 12.8H, Red Blood Count 4.97, Red Cell Distribution Width 13.7, Sodium Level 138, Total Bilirubin 0.9, Total Creatine Kinase 171H, Total Protein 7.3, Troponin I < 0.012, White Blood Count 8.80 08/01/16 04:40: Acinetobacter baumannii (PCR) Negative, Antimicrobial Susceptibility , Aliza albicans (PCR) Negative, Aliza glabrata (PCR) Negative, Aliza krusei (PCR) Negative, Aliza parapsilosis (PCR) Negative, Aliza tropicalis ( PCR) Negative, Enterobacter cloacae complex (PCR) Negative, Enterobacteriaceae species (PCR) Negative, Enterococcus species (PCR) Negative, Escherichia coli ( PCR) Negative, Group B Streptococcus (PCR) Negative, Haemophilis influenzae (PCR ) Negative, KPC-Carbapenem Resistance Gene Negative, Klebsiella oxytoca (PCR) Negative, Klebsiella pneumoniae (PCR) Negative, Listeria monocytogenes (PCR) Negative, Neisseria meningitidis (PCR) Negative, Proteus species (PCR) Negative , Pseudomonas aeruginosa (PCR) Negative, Serratia marcescens (PCR) Negative, Staphylococcus aureus (PCR)(LAB) Negative, Staphylococcus species (PCR) Positive *A, Streptococcus pneumoniae (PCR) Negative, Streptococcus pyogenes (TEM-PCR) Negative, Streptococcus species (PCR) Negative, Yris/B-Vancomycin Resistance Genes Negative, mecA-Methicillin Resistance Gene Negative 08/01/16 07:47: Lactic Acid Level 0.7 08/01/16 08:12: Gagandeep Test n/a, Arterial Blood Base Excess 12.0H, Arterial Blood HCO3 40.2H, Arterial Blood Oxygen Saturation 91L, Arterial Blood Partial Pressure CO2 106*H , Arterial Blood Partial Pressure O2 81, Arterial Blood Total CO2 43.0H, Arterial Blood pH 7.18*L, Blood Gas Liter Flow 7.0, Blood Gas Puncture Site R radial 08/01/16 09:45: Urine Bacteria None seen, Urine Bilirubin Negative, Urine Clarity Clear, Urine Collection Type Clean catch, Urine Color Yellow, Urine Glucose (UA) Negative, Urine Ketones Negative, Urine Leukocyte Esterase Negative, Urine Mucus Rare, Urine Nitrite Negative, Urine Protein 1+H, Urine RBC 2-5, Urine RBC (Auto) 2+H, Urine Specific [place] 1.020, Urine Squamous Epithelial Cells 2-5, Urine Urobilinogen 0.2, Urine WBC None seen, Urine pH 5.5, Volume Urine Centrifuged 12 ml 08/01/16 10:00: Gagandeep Test N/a, Arterial Blood Base Excess 17.0H, Arterial Blood HCO3 43.5H, Arterial Blood Oxygen Saturation 96, Arterial Blood Partial Pressure CO2 92*H, Arterial Blood Partial Pressure O2 95, Arterial Blood Total CO2 46.0H, Arterial Blood pH 7.28L, Blood Gas EPAP 5, Blood Gas IPAP 18, Blood Gas Puncture Site R radial, FiO2 % 75.0 08/01/16 12:38: Albumin 4.1, Anion Gap 12.9, Blood Urea Nitrogen 23H, Calcium Level 8.5L, Carbon Dioxide Level 38H, Chloride Level 95L, Creatinine 0.65L, Estimat Glomerular Filtration Rate 154.3, Estimated GFR (Non- 127.5, Glucose Level 133H, Phosphorus Level 4.3, Potassium Level 5.0, Sodium Level 141 08/02/16 06:00: Gagandeep Test pos, Arterial Blood Base Excess 10.0H, Arterial Blood HCO3 38.0H, Arterial Blood Oxygen Saturation 97, Arterial Blood Partial Pressure CO2 101*H, Arterial Blood Partial Pressure O2 117H, Arterial Blood Total CO2 41.0H, Arterial Blood pH 7.19L, Blood Gas EPAP 5, Blood Gas IPAP 18, Blood Gas Puncture Site rra, FiO2 % 70.0 08/02/16 06:37: Absolute Band Neutrophils 0.1, Albumin 3.8, Anion Gap 11.5, Band Neutrophils % 2 , Basophils # (Auto) , Basophils # (Manual) 0.0, Basophils % (Manual) 0, Basophils (%) (Auto) , Blood Morphology Comment Normal, Blood Urea Nitrogen 23H , C-Reactive Protein 17.40H, Calcium Level 8.4L, Carbon Dioxide Level 40H, Chloride Level 97L, Creatinine 0.65L, Differential Total Cells Counted 100, Eosinophils # 0.0, Eosinophils # (Auto) , Eosinophils % (Manual) 0, Eosinophils (%) (Auto) , Estimat Glomerular Filtration Rate 154.3, Estimated GFR (Non- 127.5, Glucose Level 162#H, Hematocrit 52.20H, Hemoglobin 15.7 , Lymphocytes # 0.4, Lymphocytes # (Auto) , Lymphocytes % (Manual) 7L, Lymphocytes (%) (Auto) , Mean Corpuscular Hemoglobin 32.6, Mean Corpuscular Hemoglobin Concent 30.1L, Mean Corpuscular Volume 109H, Mean Platelet Volume 10.2H, Metamyelocytes % 0, Monocytes # 0.1, Monocytes # (Auto) , Monocytes % ( Manual) 1L, Monocytes (%) (Auto) , Neutrophils # 5.6, Neutrophils # (Auto) , Neutrophils (%) (Auto) , Phosphorus Level 3.8, Platelet Count 147L, Potassium Level 5.0, Red Blood Count 4.81, Red Cell Distribution Width 13.4, Segmented Neutrophils % 90H, Sodium Level 143, White Blood Count 6.17 08/02/16 11:51: Gagandeep Test pos, Arterial Blood Base Excess 11.0H, Arterial Blood HCO3 37.8H, Arterial Blood Oxygen Saturation 94L, Arterial Blood Partial Pressure CO2 83*H, Arterial Blood Partial Pressure O2 85, Arterial Blood Total CO2 40.0H, Arterial Blood pH 7.27L, Blood Gas PEEP 5.0, Blood Gas Pressure Support 10.0, Blood Gas Puncture Site rr, Blood Gas Vent Mode St, FiO2 % 70.0 08/02/16 17:20: Vancomycin Level Trough 11.8 08/03/16 06:08: Absolute Band Neutrophils 0.0, Albumin 3.3L, Anion Gap 11.6, Band Neutrophils % 0, Basophils # (Auto) , Basophils # (Manual) 0.0, Basophils % (Manual) 0, Basophils (%) (Auto) , Blood Morphology Comment Normal, Blood Urea Nitrogen 18, C-Reactive Protein 6.80H, Calcium Level 8.4L, Carbon Dioxide Level 39H, Chloride Level 95L, Creatinine 0.59L, Differential Total Cells Counted 100, Eosinophils # 0.0, Eosinophils # (Auto) , Eosinophils % (Manual) 0, Eosinophils (%) (Auto) , Estimat Glomerular Filtration Rate 172.6, Estimated GFR (Non- 142.6, Glucose Level 178H, Hematocrit 43.90, Hemoglobin 14.2, Lymphocytes # 0.8, Lymphocytes # (Auto) , Lymphocytes % (Manual) 9L, Lymphocytes (%) (Auto) , Mean Corpuscular Hemoglobin 34.0, Mean Corpuscular Hemoglobin Concent 32.3, Mean Corpuscular Volume 105H, Mean Platelet Volume 10.2H, Metamyelocytes % 0, Monocytes # 0.1, Monocytes # (Auto) , Monocytes % ( Manual) 1L, Monocytes (%) (Auto) , Neutrophils # 8.1, Neutrophils # (Auto) , Neutrophils (%) (Auto) , Phosphorus Level 3.2, Platelet Count 153, Potassium Level 5.0, Red Blood Count 4.18L, Red Cell Distribution Width 12.9, Segmented Neutrophils % 90H, Sodium Level 141, White Blood Count 9.03 MICRO 08/01 Blood culture One of two cultures positive for Staph, not aureus. 07/31 Blood culture Negative to date IMAGING 08/02/16 ECHO: PENDING. LVEF 60%. RVSP 42 mmHg. 08/01/16 CT ANGIO CHEST W PROCEDURE: CT angiography of the chest with contrast. TECHNIQUE: Multiple contiguous axial images were obtained through the chest after uneventful bolus administration of intravenous contrast. Reconstructed CTA MIP acquisitions were also performed. INDICATION: Hypoxia. FINDINGS: Study is quite limited due to large body habitus. There is suboptimal opacification of the pulmonary arteries. No evidence of emboli in the proximal branches. Distal PE cannot be excluded from this study. Mild basilar atelectasis noted bilaterally. No pneumothorax or pleural effusions. No pericardial effusions. No hilar adenopathy. IMPRESSION: Suboptimal enhancement of the pulmonary arteries. No large pulmonary emboli are noted. Could not exclude small distal PE from this study. There are no associated areas of atelectasis or infiltrate. 08/01/16 CHEST 1 VIEW, AP/PA ONLY* INDICATION: Weakness. FINDINGS: There is basilar atelectasis due to morbid obesity. No infiltrates are present. Heart is mildly enlarged. No evidence of pulmonary edema. No pneumothorax or pleural effusion. IMPRESSION: Bilateral basilar atelectasis. 07/31/16 CHEST PA/LAT (2 VIEW)* INDICATION: Weakness and shortness of breath. COMPARISON: None. FINDINGS: 2 views of the chest are obtained. Lung volumes are low. Heart size is enlarged. There is mild prominence of pulmonary venous structures. There is no pneumothorax or pleural fluid. There is moderate elevation of the right hemidiaphragm. No focal pneumonia is suspected. Osseous structures appear unremarkable. IMPRESSION: 1. Low lung volumes and elevation of the right hemidiaphragm. 2. Cardiomegaly without evidence of failure. 3. No focal pneumonia or other acute abnormality is suspected. ASSESSMENT Francisco Batres is a 56 year old male admitted from ED 08/01 with acute hypoxic hypercapnic respiratory failure with SIRS/sepsis attributed to dental infection but also possible CAP. He likely has underlying COPD, has poorly treated MADAN, and probably has obesity hypoventilation syndrome. He has other chronic problems. PLAN * SIRS/Sepsis: Resolving. Treating underlying causes including dental abscess but possibly CAP. * Acute Hypoxic, Hypercapneic Respiratory Failure: Emergent transfer to ICU on admit. Immediately placed on bipap with some objective and subjective improvement. Improved. Continued bipap PRN sleep. * Community Acquired Pneumonia: Clinical diagnosis on the basis of sepsis findings, respiratory failure, cough. Treat COPD exacerbation. Guaifenesin. Empiric pip-tazo and vanco. * COPD with Acute Exacerbation: Clinical diagnosis on the basis of history. Duoneb scheduled, albuterol PRN. Guaifenesin. Methylprednisolone with transition to prednisone. * Dental Infection: Blood culture negative to date. New culture obtained 08/01. Had been prescribed amox/clav 07/31. In ED 08/01, received pip-tazo and ceftriaxone. Continued IV antibiotic as noted above. * Altered Mental Status: Improving. Due to respiratory failure. * Dental Pain: Hydrocodone/acetaminophen. Monitor mental status closely. * Fever: Acetaminophen * Pulmonary Hypertension: Continue oxygen. Check echo. * BLE Edema: Uncertain etiology. Minimal evidence for heart failure based on CXR , pro-BNP. Check echo. Compression hose. Diuresis deferred due to NPO status. * F/E/N: Full liquid diet. IVF stopped 08/02. Peripheral IV. * Prophylaxis: Enoxaparin * Code Status: Full * Dispo: Inpatient. ICU status on admit. Transferred to med/surg 08/03. CHRONIC ISSUES * MADAN: CPAP/BiPAP * HTN: Losartan, HCTZ on hold. EBONI ROD MD Aug 03, 2016 07:45 EBONI ROD MD Aug 03, 2016 07:45
[2016-08-03] MEDS ORDERED: MAG HYDROX/AL HYDROX/SIMETH 200-200-20/5 ML (MAG-AL PLUS) 30 ML UDC PO PRN (08:00)
[2016-08-03] MEDS ORDERED: predniSONE 20 MG (DELTASONE) TABLET PO SCH (08:00)
[2016-08-03] MEDS ORDERED: ONDANSETRON 4 MG (ZOFRAN) ORAL DISSOLVE TAB PO PRN (08:00)
[2016-08-03] MEDS ORDERED: ACETAMINOPHEN 325 MG TAB (TYLENOL) PO PRN (08:00)
[2016-08-03] MEDS ORDERED: CALCIUM CARBONATE CHEWABLE 300 MG (TUMS) TABLET PO PRN (08:00)
--- NOTE | 2016-08-03 08:00 | NUR ---
Breakfast arrived and pt awoken and Bipap off. Pt placed on 5 L/NC to maintain oxygen sats in the90's. IV sites patent without redness or edema. Monitor on showing SR with PAC.
[2016-08-03] MEDS ORDERED: ALBUTEROL 0.083% NEB SOLUTION 2.5 MG/3 ML VIAL INH PRN (08:15)
[2016-08-03] MEDS ORDERED: HYDROcodone/APAP 5 MG/325 MG (NORCO) TAB PO PRN (08:15)
[2016-08-03] MEDS ORDERED: VANCOMYCIN PHARMACY PROTOCOL IV SCH (08:35)
[2016-08-03] MEDS ORDERED: SODIUM CHLORIDE FLUSH 10 ML SYR IV PRN (08:42)
[2016-08-03] MEDS ORDERED: SODIUM CHLORIDE FLUSH 3 ML SYR IV PRN (08:42)
[2016-08-03] MEDS ORDERED: KETOROLAC 15 MG/ML (TORADOL) 1 ML VIAL IV PRN (09:00)
[2016-08-03] MEDS: predniSONE 20 MG (DELTASONE) TABLET PO SCH (09:00)
[2016-08-03] MEDS ORDERED: MAGNESIUM HYDROXIDE 80MG/ML (MILK OF MAGNESIA) 30 ML UDC PO PRN (09:00)
[2016-08-03] MEDS ORDERED: PROMETHAZINE HCL INJ 12.5 MG in SODIUM CHLORIDE 25 ML IV PRN (09:00)
[2016-08-03] MEDS ORDERED: DOCUSATE SODIUM 100 MG (COLACE) CAP PO PRN (09:00)
[2016-08-03] MEDS: SODIUM CHLORIDE FLUSH 3 ML SYR IV SCH (09:00)
[2016-08-03] MEDS ORDERED: POLYETHYLENE GLYCOL 17 GM (MIRALAX) PACKET PO PRN (09:00)
[2016-08-03] MEDS: ENOXAPARIN 40 MG/0.4 ML (LOVENOX) SYR SC SCH ×2 (09:01→21:37)
[2016-08-03] MEDS: guaiFENesin ER 600 MG (MUCINEX) TAB PO SCH ×2 (09:01→21:37)
[2016-08-03] MEDS ORDERED: PIPERACILLIN/TAZOBACTAM 4.5 GM in SODIUM CHLORIDE 100 ML IV SCH (09:05)
[2016-08-03 10:00] VITALS: BP 85/64
--- NOTE | 2016-08-03 10:35 | NUR ---
Zosyn IV hung and infusing per pump. Pt up to chair at bedside. Pt rather unsteady on his feet. SCD's removed while pt up in chair. Denies needs at present. Will continue to monitor.
--- NOTE | 2016-08-03 12:20 | NUR ---
Lunch into pt who remains up in chair. Denies needs.
--- NOTE | 2016-08-03 13:35 | NUR ---
Report given to Philly YOUNG, will move pt when room 305 is cleaned.
[2016-08-03] MEDS: VANCOMYCIN PHARMACY PROTOCOL IV SCH ×4 (13:51→22:45)
[2016-08-03] MEDS: VANCOMYCIN IV SCH ×4 (13:51→22:45)
[2016-08-03] MEDS: NS IV SCH ×4 (13:51→22:45)
--- NOTE | 2016-08-03 14:00 | NUR ---
Vancomycin IV 2000 mg hung at this time. at bedside.
--- NOTE | 2016-08-03 14:20 | NUR ---
Pt transferred to room 305 per w/c by [employer] and this nurse. Short report given to Philly YOUNG and care relinquished.
[2016-08-03 15:02] VITALS: BP 110/59
--- NOTE | 2016-08-03 17:00 | NUR ---
The patient ambulated from his recliner to the doorway of [facility] and back with assist of one and a gait belt. Assist was minimal and was mainly for rising from the chair. He complied with using O2 during ambulation.
--- NOTE | 2016-08-03 19:25 | NUR ---
[place] per order. The patient has been receptive to increasing activity throughout the shift. He has remained in the recliner since arrival in his room. O2 need remains at 5 liters NC.
[2016-08-03 19:49] VITALS: BP 108/66
[2016-08-04] VITALS (7 sets, daily range): BP systolic 103–150; BP diastolic 59–91
[2016-08-04] MEDS ORDERED: DEXTROMETHORPHAN 15 MG/10 ML UDC PO PRN (03:05)
[2016-08-04] MEDS: PIPERACILLIN/TAZOBACTAM 4.5 GM in SODIUM CHLORIDE 100 ML IV SCH ×3 (03:12→18:00)
[2016-08-04] MEDS: ALBUTEROL/IPRATROPIUM 3MG-0.5MG/3ML (DUONEB) NEB VIAL INH SCH ×4 (05:03→22:24)
[2016-08-04 06:00] LABS: BASOPHILS % (AUTO) 0 % (0-2); EOSINOPHILS % (AUTO) 1 % (0-4); LYMPHOCYTES # (AUTO) 1.7 X10^3; MEAN CORPUSCULAR HGB CONC 32.6 g/dL (31.0-37.0); MEAN PLATELET VOLUME 10.1 FL (6.0-9.5); MONOCYTES # (AUTO) 0.8 X10^3; MONOCYTES % (AUTO) 10 % (3-11); NEUTROPHILS # (AUTO) 5.8 X10^3; NEUTROPHILS % (AUTO) 70 % (51-67); PLATELET COUNT 149 10^3uL (150-450); WHITE BLOOD COUNT 8.25 10^3uL (4.0-11.0)
[2016-08-04 06:13] LABS: MEAN CORPUSCULAR HEMOGLOBIN 33.7 PG (26.0-34.0); MEAN CORPUSCULAR VOLUME 103 FL (80-100)
[2016-08-04 06:22] LABS: ALBUMIN 3.4 g/dL (3.4-5.0); PHOSPHORUS 2.9 mg/dL (2.4-4.9)
[2016-08-04 06:52] LABS: ANION GAP 10.3 MEQ/L (3-15)
--- NOTE | 2016-08-04 08:00 | NUR ---
Pt sitting up in chair. Skin warm, dry, intact. Resprs nonlabored, even on 5L NC. Pt's L hand is edematous compared to R. L hand IV catheter is pulled out some and drsg is quite loose. Moved IV abx to LAC IV and flushed and redressed L hand IV. Skin proximal to IV does not appear reddened and edema does not appear to be worse after flushing. Will continue to monitor. Placed pillow under L arm and encouraged pt to keep it elevated. Call light within reach. Denies needs.
[2016-08-04] MEDS: VANCOMYCIN IV SCH ×2 (08:32)
[2016-08-04] MEDS: NS IV SCH ×2 (08:32)
[2016-08-04] MEDS: VANCOMYCIN PHARMACY PROTOCOL IV SCH ×2 (08:32)
[2016-08-04] MEDS: guaiFENesin ER 600 MG (MUCINEX) TAB PO SCH ×2 (08:45→21:03)
[2016-08-04] MEDS: predniSONE 20 MG (DELTASONE) TABLET PO SCH (08:45)
[2016-08-04] MEDS: SODIUM CHLORIDE FLUSH 3 ML SYR IV SCH (08:46)
[2016-08-04] MEDS: ENOXAPARIN 40 MG/0.4 ML (LOVENOX) SYR SC SCH ×2 (08:46→21:04)
--- NOTE | 2016-08-04 11:33 | Progress Note-A/P (E) ---
Progress Note Subjective: Patient endorses feeling much better today. Discussed current findings and discharge plan. Objective: Current Medications Promethazine Q6H PRN IV Acetaminophen 650 mg Q6H PRN PO Albuterol Sulfate 0.083% Neb Solution 2.5 mg Q4H PRN INH Albuterol/ Ipratropium 3 ml RTQ6HR INH Calcium Carbonate 300 mg Q8H PRN PO Docusate 100 mg BID PRN PO Enoxaparin 40 mg BID SC Guaifenesin 1,200 mg BID PO Acetaminophen/ Hydrocodone 5 Mg/325 Mg 1 tab Q6H PRN PO Ketorolac 15 mg Q6H PRN IV Magnesium Hydroxide 30 ml DAILY PRN PO Al Hydrox/Mg Hydrox/Simethicone 30 ml Q6H PRN PO Ondansetron 4 mg Q6H PRN PO Polyethylene Glycol 17 gm DAILY PRN PO Prednisone 60 mg DAILY@0800 PO Piperacillin/Tazobactam Q8H IV Dextromethorphan HBr Vital Signs Date Time Temp Pulse Resp B/P Pulse Ox O2 Delivery O2 Flow Rate FiO2 08/04/16 09:00 80 08/04/16 08:00 97.1 20 129/77 97 Bipap machine 08/02/16 16:53 60.00 I & O Past 24 hrs 08/04/16 07:00 Intake Total 3543 ml Output Total 2525 ml Balance 1018 ml Intake Oral 2979 ml IV Total 564 ml Output Urine Total 2525 ml # Bowel Movements 1 Physical Exam General--Awake and alert. No distress. HEENT--Normocephalic. MMM in oral cavity. Nasal cannula in place. Lungs--Clear to auscultation bilaterally. Nonlabored respirations. Heart--RRR. No murmurs. Abdomen--Obese. Normal bowel sounds. Soft. Nondistended. Nontender. Extremities--Edema bilateral lower extremities, left handed edema worse than right handed edema. Past 24 hour Lab Results 08/04/16 05:27 Laboratory Results Past 24 Hrs 08/04/16 05:27: Albumin 3.4, Anion Gap 10.3, Basophils # (Auto) 0.0, Basophils (%) (Auto) 0, Blood Urea Nitrogen 19, Calcium Level 8.2, Carbon Dioxide Level 38, Chloride Level 97, Creatinine 0.59, Eosinophils # (Auto) 0.0, Eosinophils (%) (Auto) 1, Estimat Glomerular Filtration Rate 172.6, Estimated GFR (Non- 142.6, Glucose Level 96, Hematocrit 42.90, Hemoglobin 14.0, Lymphocytes # (Auto ) 1.7, Lymphocytes (%) (Auto) 20, Mean Corpuscular Hemoglobin 33.7, Mean Corpuscular Hemoglobin Concent 32.6, Mean Corpuscular Volume 103, Mean Platelet Volume 10.1, Monocytes # (Auto) 0.8, Monocytes (%) (Auto) 10, Neutrophils # ( Auto) 5.8, Neutrophils (%) (Auto) 70, Phosphorus Level 2.9, Platelet Count 149, Potassium Level 4.0, Red Blood Count 4.16, Red Cell Distribution Width 12.9, Sodium Level 141, White Blood Count 8.25 Microbiology 08/01/16 Bacterial Identification - Final, Complete Microbiology 08/01/16 Bacterial Identification - Final, Complete Bacterial Isolate Identification FINAL 08/04/16 07:54 S Staphylococcus capitis S. capitis Antibiotic TRISTA INT Clindamycin <=0.25 S Erythromycin <=0.25 S Oxacillin <=0.25 S Tetracycline 2 S Trimethoprim/Sulfa <=10 S Vancomycin <=0.5 S 08.01.16 BC's x 2 negative to date Imaging Results IMPRESSION: Bilateral basilar atelectasis. 08.01.16 CTA IMPRESSION: Suboptimal enhancement of the pulmonary arteries. No large pulmonary emboli are noted. Could not exclude small distal PE from this study. There are no associated areas of atelectasis or infiltrate. Assessment/Plan Sepsis Criteria met with tachycardia and temperature. Attributed to dental abscess and COPD exacerbation/CAP. Treatment noted below. Treating fevers with acetaminophen. Acute hypoxic, hypercapnic respiratory failure Patient was transferred to the ICU and placed on bipap with improvement. Patient has since been transferred out of the ICU. Much improvement. Will have patient use cpap this evening from his home. CAP BC's-one positive, see below. Clinical diagnosis, no evidence on imaging. Patient was initially provided with Vancomycin and Zosyn. De-escalating to amox/clav. COPD Exacerbation Continue duoneb scheduled, albuterol PRN, guaifenesin and burst steroids. Dental Infection Blood cultures noted above. New culture obtained 08/01. Had been prescribed amox/clav 07/31 in the outpatient setting. Vanc and pip/ tazo on admission. De-escalating to po augmentin. Stopping Vancomycin. Altered Mental Status Improving. Due to respiratory failure. Dental Pain Hydrocodone/acetaminophen. Monitor mental status closely. Patient will need to see a dentist on discharge. Pulmonary Hypertension Continue oxygen. Echo taken, result pending. BLE Edema Uncertain etiology. Minimal evidence for heart failure based on CXR, pro-BNP. Check echo. Compression hose. MADAN Continue home CPAP/BiPAP HTN: Home doses of Losartan and HCTZ on hold. F/E/N Full liquid diet. IVF stopped 08/02. Peripheral IV. Electrolytes essentially normal. DVT Prophylaxis Enoxaparin. Code Status Full code. Dispo Inpatient. ICU status on admit. Transferred to med/surg 08/03. F/E/N Full liquid diet. IVF stopped 08/02. Peripheral IV. Electrolytes essentially normal. DVT Prophylaxis Enoxaparin. Code Status Full code. Dispo Inpatient. Continue to monitor closely. Watch how he tolerated over night cpap. CARLOS MCMILLAN MD Aug 04, 2016 11:33
[2016-08-04] MEDS ORDERED: SODIUM CHLORIDE 100 ML ONE (11:54)
[2016-08-04] MEDS ORDERED: NS 100 ML (IVPB) BAG IV PRN (12:05)
--- NOTE | 2016-08-04 19:40 | NUR ---
Pt sitting up in chair. Skin warm, dry, intact. Resprs nonlabored, even on 5L NC. Denies needs. Call light within reach.
[2016-08-04] MEDS: AMOXICILLIN/CLAVULANATE 875MG-125MG (AUGMENTIN) TABLET PO SCH (21:04)
[2016-08-05] MEDS: ALBUTEROL/IPRATROPIUM 3MG-0.5MG/3ML (DUONEB) NEB VIAL INH SCH ×4 (04:10→20:22)
[2016-08-05 04:11] VITALS: BP 135/74
--- NOTE | 2016-08-05 06:40 | NUR ---
Patient rests in bed throughout night without needs. Reports headache this AM, Tylenol given per request. No needs at this time.
[2016-08-05 08:12] VITALS: BP 112/73
--- NOTE | 2016-08-05 08:55 | Progress Note-A/P (E) ---
Progress Note Subjective: Patient endorses feeling better. He would like to go home. He states he used the hospital bpap/cpap machine last night. He did require 5 liters of oxygen with this. He states he uses 2 liters at home continuously. Objective: Current Medications Promethazine Q6H PRN IV Acetaminophen 650 mg Q6H PRN PO Albuterol Sulfate 0.083% Neb Solution 2.5 mg Q4H PRN INH Albuterol/ Ipratropium 3 ml RTQ6HR INH Calcium Carbonate 300 mg Q8H PRN PO Docusate 100 mg BID PRN PO Enoxaparin 40 mg BID SC Guaifenesin 1,200 mg BID PO Acetaminophen/ Hydrocodone 5 Mg/325 Mg 1 tab Q6H PRN PO Ketorolac 15 mg Q6H PRN IV Magnesium Hydroxide 30 ml DAILY PRN PO Al Hydrox/Mg Hydrox/Simethicone 30 ml Q6H PRN PO Ondansetron 4 mg Q6H PRN PO Polyethylene Glycol 17 gm DAILY PRN PO Prednisone 60 mg DAILY@0800 PO Piperacillin/Tazobactam Q8H IV Dextromethorphan HBr Vital Signs Date Time Temp Pulse Resp B/P Pulse Ox O2 Delivery O2 Flow Rate FiO2 08/05/16 08:53 78 08/05/16 08:12 97.7 22 112/73 97 Nasal cannula 08/02/16 16:53 60.00 I & O Past 24 hrs 08/05/16 07:00 Intake Total 3885 ml Output Total 3075 ml Balance 810 ml Intake Oral 2492 ml IV Total 1393 ml Output Urine Total 3075 ml # Bowel Movements 4 Physical Exam General--Awake and alert. No distress. Cough present. HEENT--Normocephalic. MMM in oral cavity. Nasal cannula in place. Lungs--Diminished through out. Nonlabored respirations. Heart--RRR. No murmurs. Abdomen--Obese. Normal bowel sounds. Soft. Nondistended. Nontender. Extremities--Edema bilateral lower extremities, left handed edema has improved. Past 24 hour Lab Results Microbiology 08/01/16 Bacterial Identification - Final, Complete Imaging Results IMPRESSION: Bilateral basilar atelectasis. 08.01.16 CTA IMPRESSION: Suboptimal enhancement of the pulmonary arteries. No large pulmonary emboli are noted. Could not exclude small distal PE from this study. There are no associated areas of atelectasis or infiltrate. Assessment/Plan Sepsis Criteria met with tachycardia and temperature. Attributed to dental abscess and COPD exacerbation/CAP. Treatment noted below. Treating fevers with acetaminophen. Acute on chronic hypoxic, hypercapnic respiratory failure Patient was transferred to the ICU and placed on bipap with improvement. Patient has since been transferred out of the ICU. Much improvement. Will have patient use cpap this evening from his home, placing order. CAP BC's-one positive, see below. Clinical diagnosis, no evidence on imaging. Patient was initially provided with Vancomycin and Zosyn. De-escalating to amox/clav. COPD Exacerbation Continue duoneb scheduled, albuterol PRN, guaifenesin and burst steroids. Patient is on 2 liters of oxygen continuously at home. Dental Infection Blood cultures noted above. New culture obtained 08/01. Had been prescribed amox/clav 07/31 in the outpatient setting. Vanc and pip/ tazo on admission. De-escalating to po augmentin. Stopping Vancomycin. Altered Mental Status Improving. Due to respiratory failure. Dental Pain Hydrocodone/acetaminophen. Monitor mental status closely. Patient will need to see a dentist on discharge. Pulmonary Hypertension Continue oxygen. Echo taken, result pending. BLE Edema Uncertain etiology. Minimal evidence for heart failure based on CXR, pro-BNP. Check echo. Compression hose. MADAN Continue home CPAP/BiPAP HTN: Home doses of Losartan and HCTZ on hold. F/E/N Regular diet. IVF stopped 08/02. Peripheral IV. Electrolytes essentially normal. DVT Prophylaxis Enoxaparin. Code Status Full code. Dispo Inpatient. Continue to monitor closely. Patient has tolerated de-escalation of abx well. Watch how he tolerated over night cpap. Patient would like to discharge to home tomorrow. CARLOS MCMILLAN MD Aug 05, 2016 08:55 Dispo Inpatient. Continue to monitor closely. Watch how he tolerated over night cpap. CARLOS MCMILLAN MD Aug 05, 2016 08:55
[2016-08-05] MEDS ORDERED: predniSONE 20 MG (DELTASONE) TABLET PO SCH (09:27)
[2016-08-05] MEDS: AMOXICILLIN/CLAVULANATE 875MG-125MG (AUGMENTIN) TABLET PO SCH ×2 (09:59→21:34)
[2016-08-05] MEDS: ENOXAPARIN 40 MG/0.4 ML (LOVENOX) SYR SC SCH ×2 (10:00→21:34)
[2016-08-05] MEDS: SODIUM CHLORIDE FLUSH 3 ML SYR IV SCH (10:00)
[2016-08-05] MEDS: guaiFENesin ER 600 MG (MUCINEX) TAB PO SCH ×2 (10:00→21:34)
[2016-08-05] MEDS: predniSONE 20 MG (DELTASONE) TABLET PO SCH (10:01)
[2016-08-05 11:57] VITALS: BP 127/79
--- NOTE | 2016-08-05 12:50 | NUR ---
Weaned O2 to 3 liter NC. O2 sat. has been around 97% on 5 liters. Will recheck sat.
--- NOTE | 2016-08-05 13:25 | NUR ---
O2 sat.= 91% on 3 liters. No changes made at this time. Informed patient to call if he felt short of breath.
--- NOTE | 2016-08-05 14:30 | NUR ---
O2 sat. remains in the low 90's on 3 liters NC. reports a home O2 dose of 2 to 3 liters.
[2016-08-05 15:51] VITALS: BP 148/92
--- NOTE | 2016-08-05 19:30 | NUR ---
Patient has ambulated the halls a half lap in the afternoon and a full lap in the early evening hours. He is compliant with increasing activity and reports he's working toward potential dismissal tomorrow.
[2016-08-05 19:39] VITALS: BP 133/90
--- NOTE | 2016-08-05 20:00 | NUR ---
Patient ambulated around the nurses station with stand by assist of two and Oxygen on. Patient did very well. No respiratory distress after walk. Starting to get a little stronger.
--- NOTE | 2016-08-05 22:30 | NUR ---
Patient in the bathroom and voided. Ready for sleep. RT here to assist with C-pap. Bled in 3 liters of Oxygen through C-pap. Patient tolerates well. Sat's 95-97%. Respirations even and non-labored. No discomforts voiced. staying in cot in room. Call light within reach.
[2016-08-05 23:34] VITALS: BP 124/81
[2016-08-06] MEDS: ALBUTEROL/IPRATROPIUM 3MG-0.5MG/3ML (DUONEB) NEB VIAL INH SCH ×2 (03:01→08:46)
[2016-08-06 04:29] VITALS: BP 156/93
[2016-08-06 06:29] LABS: BASOPHILS % (AUTO) 0 % (0-2); EOSINOPHILS # (AUTO) 0.2 10^3uL; EOSINOPHILS % (AUTO) 3 % (0-4); LYMPHOCYTES # (AUTO) 1.9 X10^3; MEAN CORPUSCULAR HGB CONC 31.8 g/dL (31.0-37.0); MEAN PLATELET VOLUME 10.5 FL (6.0-9.5); MONOCYTES # (AUTO) 0.6 X10^3; MONOCYTES % (AUTO) 8 % (3-11); NEUTROPHILS # (AUTO) 5.2 X10^3; NEUTROPHILS % (AUTO) 65 % (51-67); PLATELET COUNT 158 10^3uL (150-450); WHITE BLOOD COUNT 7.91 10^3uL (4.0-11.0)
[2016-08-06 06:55] LABS: ALBUMIN 3.3 g/dL (3.4-5.0); ANION GAP 12.2 MEQ/L (3-15); MAGNESIUM* 2.6 mg/dL (1.6-2.3); PHOSPHORUS 3.2 mg/dL (2.4-4.9)
[2016-08-06 07:26] LABS: MEAN CORPUSCULAR HEMOGLOBIN 32.7 PG (26.0-34.0); MEAN CORPUSCULAR VOLUME 103 FL (80-100)
--- NOTE | 2016-08-06 07:32 | NUR ---
Patient in the recliner at shift change. Alert and oriented. C-pap off for the day. Oxygen on at 2 liters. No shortness of air noted. Anxious to possibly go home today.Waiting on breakfast. No concerns or needs voiced at this time.
[2016-08-06] MEDS: AMOXICILLIN/CLAVULANATE 875MG-125MG (AUGMENTIN) TABLET PO SCH (08:19)
[2016-08-06] MEDS: guaiFENesin ER 600 MG (MUCINEX) TAB PO SCH (08:19)
[2016-08-06] MEDS: ENOXAPARIN 40 MG/0.4 ML (LOVENOX) SYR SC SCH (08:20)
[2016-08-06 08:38] VITALS: BP 124/71
[2016-08-06] MEDS: SODIUM CHLORIDE FLUSH 3 ML SYR IV SCH (09:00)
--- NOTE | 2016-08-06 09:11 | NUR ---
NUTRITION ASSESSMENT Level 1 Patient: Francisco Batres Age/Sex: 56/M Date Screened: 08-06-16 Weight: 331.7#/150.8 kg Height: 68 inches Primary Diagnosis: SIRS/sepsis Diet Order: regular Relevant labs: glucose 94, magnesium 2.6 Food allergies: N Nutrition Assessment Criteria Age over 80: N Body Mass Index (BMI) under 19: N Admission Screening Indicates Risk? N Moderate/High Risk Diagnosis: 3 points TPN or PPN: N NPO or clear liquid diet: N Serum Glucose <70 or >180: N Hgb A1c >6.7: N/A Total: 3 points Risk Screen: __ Patient at low nutritional risk based on available data; reevaluate in 5-7 days _X_ Patient at moderate nutritional risk based on available data; reevaluate in 3-5 days __ Patient at high nutritional risk; complete Nutrition Assessment within 48 hours of admission. Comments: Late assessment due to Natalie vacation/no RD coverage; noted possible DC home today. Moderate-risk assessment comes partly from tooth infection, for which pt. is to follow up with a dentist. He is eating 100% of diet and reports on weight changes. Addendum: 08/06/16 at [address] Typo--should say patient reports "no weight changes"
[2016-08-06] MEDS ORDERED: AMOX-355 PO (09:26)
[2016-08-06] MEDS ORDERED: AC325T PO (09:26)
[2016-08-06] MEDS ORDERED: ALBU8CC IH (09:26)
--- NOTE | 2016-08-06 10:31 | NUR ---
Discharge instructions reviewed with patient and spouse, both demonstrate understanding. Skin warm, dry, intact. Resprs nonlabored, even on 3L. Switched O2 to home tank for transport. DC packet and belongings sent with patient. SL removed with catheter tip intact, no bleeding noted. Bandage applied. Pt dismissed at this time via w/c accompanied by CHANCE Barker, spouse, and family member.
--- NOTE | 2016-08-07 01:45 | Discharge Summary (E) ---
Discharge Summary (E) Admit Date/Time Aug 01, 2016 at 07:28 Discharge Date/Time Aug 06, 2016 at 10:31 Admitting Provider Shan Real MD Primary Care Provider Leatha Berry MD Attending Provider Shan Real MD Consulting Provider History and Present Illness See History and Physical for complete details. Francisco Batres is a 56 year old male admitted from ED 08/01 with acute hypoxic hypercapnic respiratory failure with SIRS/sepsis attributed to dental infection but also possible CAP. He likely has underlying COPD, has poorly treated MADAN, and probably has obesity hypoventilation syndrome. He has other chronic problems. On arrival to unit he required immediate transfer to ICU because of hypercapnic, hypoxic respiratory failure that did improve with BiPAP. This was transitioned to CPAP to good effect. Mentation improved as CO2 level improved. Additional details of his hospitalization as follows. He was discharged home in improved, stable condition , but he will benefit from close PCP and pulmonology follow-up. Hospital Course and Treatment * SIRS/Sepsis: Resolving. Treated underlying causes including dental abscess and CAP. * Acute Hypoxic, Hypercapneic Respiratory Failure: Emergent transfer to ICU on admit. Immediately placed on bipap with some objective and subjective improvement. CO2 level gradually improved. Transitioned to his home CPAP. * Community Acquired Pneumonia: Clinical diagnosis on the basis of sepsis findings, respiratory failure, cough. Treated COPD exacerbation. Guaifenesin. Empiric pip-tazo and vanco. De-escalated to amoxicillin/clavulanate which was continued at discharge. * COPD with Acute Exacerbation: Clinical diagnosis of COPD on the basis of history. Duoneb scheduled, albuterol PRN. Guaifenesin. Methylprednisolone with transition to prednisone. Needs pulmonary function testing after discharge. * Altered Mental Status: Resolved. Due to respiratory failure. * Dental Infection: Abx as above. Encouraged him to follow-up with dentist. * Dental Pain: Hydrocodone/acetaminophen. Monitored mental status closely. * Fever: Resolved. Acetaminophen * Pulmonary Hypertension: Continue oxygen. Echo still pending at time of discharge. * BLE Edema: Uncertain etiology. Minimal evidence for heart failure based on CXR , pro-BNP. Echo pending. Compression hose. CHRONIC ISSUES * MADAN: Home CPAP. * HTN: Losartan, HCTZ on hold. * Morbid Obesity: Education provided about importance of weight loss at discharge. Discharge Physicial Exam General Vital Signs Date Time Temp Pulse Resp B/P Pulse Ox O2 Delivery O2 Flow Rate FiO2 08/06/16 08:38 98.2 89 18 124/71 93 Nasal cannula 3.00 GEN: Awake, alert, interactive, oriented. NAD at present. HEENT: EOMI, clear sclerae, somewhat dry oral mucosa. Left mandibular molar noted to have caries, central pit. No purulence. CV: Regular without significant murmur. LUNGS: Good breath sounds throughout. No R/R/W. ABD: Morbidly obese, mildly distended, but abdomen is soft, not apparently tender. Active bowel sounds. EXTR: 2+ BLE pitting edema without chronic venous stasis changes. INTEG: No rash. Plethora of face. Integument is warm, dry, well-perfused. NEURO: No focal motor neuro deficit. Laboratory/Radiology Data Laboratory Results-14 Days 08/01/16 04:30: Activated Partial Thromboplast Time 31.0, Alanine Aminotransferase (ALT/SGPT) 41 , Albumin 4.2, Albumin/Globulin Ratio 1.354, Alkaline Phosphatase 69, Anion Gap 8.0, Aspartate Amino Transf (AST/SGOT) 30, BUN/Creatinine Ratio 36H, Basophils # (Auto) 0.0, Basophils (%) (Auto) 0, Blood Urea Nitrogen 24H, C-Reactive Protein 25.50H, Calcium Level 8.7L, Calcium/Ionized Calcium Ratio 3.8, Calculated Osmolality 273L, Carbon Dioxide Level 38H, Chloride Level 92L, Creatine Kinase MB 1.7, Creatinine 0.66L, D-Dimer 1331*H, Eosinophils # (Auto) 0.0, Eosinophils (%) (Auto) 1, Estimat Glomerular Filtration Rate 151.6, Estimated GFR (Non- 125.3, Glucose Level 137#H, Hematocrit 52.30H, Hemoglobin 16.4, Lymphocytes # (Auto) 0.8, Lymphocytes (%) (Auto) 9L, Mean Corpuscular Hemoglobin 33.0, Mean Corpuscular Hemoglobin Concent 31.4, Mean Corpuscular Volume 105H, Mean Platelet Volume 10.7H, Monocytes # (Auto) 0.6 , Monocytes (%) (Auto) 7, [id number]-Type Natriuretic Peptide 484H, Neutrophils # (Auto) 7.3, Neutrophils (%) (Auto) 82H, Platelet Count 159, Potassium Level 4.6 , Prothromb Time International Ratio 1.1, Prothrombin Time 12.8H, Red Blood Count 4.97, Red Cell Distribution Width 13.7, Sodium Level 138, Total Bilirubin 0.9, Total Creatine Kinase 171H, Total Protein 7.3, Troponin I < 0.012, White Blood Count 8.80 08/01/16 04:40: Acinetobacter baumannii (PCR) Negative, Antimicrobial Susceptibility , Aliza albicans (PCR) Negative, Aliza glabrata (PCR) Negative, Aliza krusei (PCR) Negative, Aliza parapsilosis (PCR) Negative, Aliza tropicalis ( PCR) Negative, Enterobacter cloacae complex (PCR) Negative, Enterobacteriaceae species (PCR) Negative, Enterococcus species (PCR) Negative, Escherichia coli ( PCR) Negative, Group B Streptococcus (PCR) Negative, Haemophilis influenzae (PCR ) Negative, KPC-Carbapenem Resistance Gene Negative, Klebsiella oxytoca (PCR) Negative, Klebsiella pneumoniae (PCR) Negative, Listeria monocytogenes (PCR) Negative, Neisseria meningitidis (PCR) Negative, Proteus species (PCR) Negative , Pseudomonas aeruginosa (PCR) Negative, Serratia marcescens (PCR) Negative, Staphylococcus aureus (PCR)(LAB) Negative, Staphylococcus species (PCR) Positive *A, Streptococcus pneumoniae (PCR) Negative, Streptococcus pyogenes (TEM-PCR) Negative, Streptococcus species (PCR) Negative, Yris/B-Vancomycin Resistance Genes Negative, mecA-Methicillin Resistance Gene Negative 08/01/16 07:47: Lactic Acid Level 0.7 08/01/16 08:12: Gagandeep Test n/a, Arterial Blood Base Excess 12.0H, Arterial Blood HCO3 40.2H, Arterial Blood Oxygen Saturation 91L, Arterial Blood Partial Pressure CO2 106*H , Arterial Blood Partial Pressure O2 81, Arterial Blood Total CO2 43.0H, Arterial Blood pH 7.18*L, Blood Gas Liter Flow 7.0, Blood Gas Puncture Site R radial 08/01/16 09:45: Urine Bacteria None seen, Urine Bilirubin Negative, Urine Clarity Clear, Urine Collection Type Clean catch, Urine Color Yellow, Urine Glucose (UA) Negative, Urine Ketones Negative, Urine Leukocyte Esterase Negative, Urine Mucus Rare, Urine Nitrite Negative, Urine Protein 1+H, Urine RBC 2-5, Urine RBC (Auto) 2+H, Urine Specific [place] 1.020, Urine Squamous Epithelial Cells 2-5, Urine Urobilinogen 0.2, Urine WBC None seen, Urine pH 5.5, Volume Urine Centrifuged 12 ml 08/01/16 10:00: Gagandeep Test N/a, Arterial Blood Base Excess 17.0H, Arterial Blood HCO3 43.5H, Arterial Blood Oxygen Saturation 96, Arterial Blood Partial Pressure CO2 92*H, Arterial Blood Partial Pressure O2 95, Arterial Blood Total CO2 46.0H, Arterial Blood pH 7.28L, Blood Gas EPAP 5, Blood Gas IPAP 18, Blood Gas Puncture Site R radial, FiO2 % 75.0 08/01/16 12:38: Albumin 4.1, Anion Gap 12.9, Blood Urea Nitrogen 23H, Calcium Level 8.5L, Carbon Dioxide Level 38H, Chloride Level 95L, Creatinine 0.65L, Estimat Glomerular Filtration Rate 154.3, Estimated GFR (Non- 127.5, Glucose Level 133H, Phosphorus Level 4.3, Potassium Level 5.0, Sodium Level 141 08/02/16 06:00: Gagandeep Test pos, Arterial Blood Base Excess 10.0H, Arterial Blood HCO3 38.0H, Arterial Blood Oxygen Saturation 97, Arterial Blood Partial Pressure CO2 101*H, Arterial Blood Partial Pressure O2 117H, Arterial Blood Total CO2 41.0H, Arterial Blood pH 7.19L, Blood Gas EPAP 5, Blood Gas IPAP 18, Blood Gas Puncture Site rra, FiO2 % 70.0 08/02/16 06:37: Absolute Band Neutrophils 0.1, Albumin 3.8, Anion Gap 11.5, Band Neutrophils % 2 , Basophils # (Auto) , Basophils # (Manual) 0.0, Basophils % (Manual) 0, Basophils (%) (Auto) , Blood Morphology Comment Normal, Blood Urea Nitrogen 23H , C-Reactive Protein 17.40H, Calcium Level 8.4L, Carbon Dioxide Level 40H, Chloride Level 97L, Creatinine 0.65L, Differential Total Cells Counted 100, Eosinophils # 0.0, Eosinophils # (Auto) , Eosinophils % (Manual) 0, Eosinophils (%) (Auto) , Estimat Glomerular Filtration Rate 154.3, Estimated GFR (Non- 127.5, Glucose Level 162#H, Hematocrit 52.20H, Hemoglobin 15.7 , Lymphocytes # 0.4, Lymphocytes # (Auto) , Lymphocytes % (Manual) 7L, Lymphocytes (%) (Auto) , Mean Corpuscular Hemoglobin 32.6, Mean Corpuscular Hemoglobin Concent 30.1L, Mean Corpuscular Volume 109H, Mean Platelet Volume 10.2H, Metamyelocytes % 0, Monocytes # 0.1, Monocytes # (Auto) , Monocytes % ( Manual) 1L, Monocytes (%) (Auto) , Neutrophils # 5.6, Neutrophils # (Auto) , Neutrophils (%) (Auto) , Phosphorus Level 3.8, Platelet Count 147L, Potassium Level 5.0, Red Blood Count 4.81, Red Cell Distribution Width 13.4, Segmented Neutrophils % 90H, Sodium Level 143, White Blood Count 6.17 08/02/16 11:51: Gagandeep Test pos, Arterial Blood Base Excess 11.0H, Arterial Blood HCO3 37.8H, Arterial Blood Oxygen Saturation 94L, Arterial Blood Partial Pressure CO2 83*H, Arterial Blood Partial Pressure O2 85, Arterial Blood Total CO2 40.0H, Arterial Blood pH 7.27L, Blood Gas PEEP 5.0, Blood Gas Pressure Support 10.0, Blood Gas Puncture Site rr, Blood Gas Vent Mode St, FiO2 % 70.0 08/02/16 17:20: Vancomycin Level Trough 11.8 08/03/16 06:08: Absolute Band Neutrophils 0.0, Albumin 3.3L, Anion Gap 11.6, Band Neutrophils % 0, Basophils # (Auto) , Basophils # (Manual) 0.0, Basophils % (Manual) 0, Basophils (%) (Auto) , Blood Morphology Comment Normal, Blood Urea Nitrogen 18, C-Reactive Protein 6.80H, Calcium Level 8.4L, Carbon Dioxide Level 39H, Chloride Level 95L, Creatinine 0.59L, Differential Total Cells Counted 100, Eosinophils # 0.0, Eosinophils # (Auto) , Eosinophils % (Manual) 0, Eosinophils (%) (Auto) , Estimat Glomerular Filtration Rate 172.6, Estimated GFR (Non- 142.6, Glucose Level 178H, Hematocrit 43.90, Hemoglobin 14.2, Lymphocytes # 0.8, Lymphocytes # (Auto) , Lymphocytes % (Manual) 9L, Lymphocytes (%) (Auto) , Mean Corpuscular Hemoglobin 34.0, Mean Corpuscular Hemoglobin Concent 32.3, Mean Corpuscular Volume 105H, Mean Platelet Volume 10.2H, Metamyelocytes % 0, Monocytes # 0.1, Monocytes # (Auto) , Monocytes % ( Manual) 1L, Monocytes (%) (Auto) , Neutrophils # 8.1, Neutrophils # (Auto) , Neutrophils (%) (Auto) , Phosphorus Level 3.2, Platelet Count 153, Potassium Level 5.0, Red Blood Count 4.18L, Red Cell Distribution Width 12.9, Segmented Neutrophils % 90H, Sodium Level 141, White Blood Count 9.03 08/04/16 05:27: Albumin 3.4, Anion Gap 10.3, Basophils # (Auto) 0.0, Basophils (%) (Auto) 0, Blood Urea Nitrogen 19H, Calcium Level 8.2L, Carbon Dioxide Level 38H, Chloride Level 97L, Creatinine 0.59L, Eosinophils # (Auto) 0.0, Eosinophils (%) (Auto) 1 , Estimat Glomerular Filtration Rate 172.6, Estimated GFR (Non- 142.6, Glucose Level 96#, Hematocrit 42.90, Hemoglobin 14.0, Lymphocytes # (Auto ) 1.7, Lymphocytes (%) (Auto) 20, Mean Corpuscular Hemoglobin 33.7, Mean Corpuscular Hemoglobin Concent 32.6, Mean Corpuscular Volume 103H, Mean Platelet Volume 10.1H, Monocytes # (Auto) 0.8, Monocytes (%) (Auto) 10, Neutrophils # (Auto) 5.8, Neutrophils (%) (Auto) 70H, Phosphorus Level 2.9, Platelet Count 149L, Potassium Level 4.0, Red Blood Count 4.16L, Red Cell Distribution Width 12.9, Sodium Level 141, White Blood Count 8.25 08/06/16 05:10: Albumin 3.3L, Anion Gap 12.2, Basophils # (Auto) 0.0, Basophils (%) (Auto) 0, Blood Urea Nitrogen 15, Calcium Level 8.6L, Carbon Dioxide Level 36H, Chloride Level 96L, Creatinine 0.54L, Eosinophils # (Auto) 0.2, Eosinophils (%) (Auto) 3 , Estimat Glomerular Filtration Rate 191.1, Estimated GFR (Non- 158.0, Glucose Level 94, Hematocrit 47.20, Hemoglobin 15.0, Lymphocytes # (Auto ) 1.9, Lymphocytes (%) (Auto) 24, Mean Corpuscular Hemoglobin 32.7, Mean Corpuscular Hemoglobin Concent 31.8, Mean Corpuscular Volume 103H, Mean Platelet Volume 10.5H, Monocytes # (Auto) 0.6, Monocytes (%) (Auto) 8, Neutrophils # (Auto) 5.2, Neutrophils (%) (Auto) 65, Phosphorus Level 3.2, Platelet Count 158, Potassium Level 4.0, Red Blood Count 4.59, Red Cell Distribution Width 12.4, Sodium Level 140, White Blood Count 7.91, Magnesium Level 2.6H MICRO 08/01 Blood culture One of two cultures positive for Staph, not aureus. 07/31 Blood culture Negative to date IMAGING 08/02/16 ECHO: PENDING. LVEF 60%. RVSP 42 mmHg. 08/01/16 CT ANGIO CHEST W PROCEDURE: CT angiography of the chest with contrast. TECHNIQUE: Multiple contiguous axial images were obtained through the chest after uneventful bolus administration of intravenous contrast. Reconstructed CTA MIP acquisitions were also performed. INDICATION: Hypoxia. FINDINGS: Study is quite limited due to large body habitus. There is suboptimal opacification of the pulmonary arteries. No evidence of emboli in the proximal branches. Distal PE cannot be excluded from this study. Mild basilar atelectasis noted bilaterally. No pneumothorax or pleural effusions. No pericardial effusions. No hilar adenopathy. IMPRESSION: Suboptimal enhancement of the pulmonary arteries. No large pulmonary emboli are noted. Could not exclude small distal PE from this study. There are no associated areas of atelectasis or infiltrate. 08/01/16 CHEST 1 VIEW, AP/PA ONLY* INDICATION: Weakness. FINDINGS: There is basilar atelectasis due to morbid obesity. No infiltrates are present. Heart is mildly enlarged. No evidence of pulmonary edema. No pneumothorax or pleural effusion. IMPRESSION: Bilateral basilar atelectasis. 07/31/16 CHEST PA/LAT (2 VIEW)* INDICATION: Weakness and shortness of breath. COMPARISON: None. FINDINGS: 2 views of the chest are obtained. Lung volumes are low. Heart size is enlarged. There is mild prominence of pulmonary venous structures. There is no pneumothorax or pleural fluid. There is moderate elevation of the right hemidiaphragm. No focal pneumonia is suspected. Osseous structures appear unremarkable. IMPRESSION: 1. Low lung volumes and elevation of the right hemidiaphragm. 2. Cardiomegaly without evidence of failure. 3. No focal pneumonia or other acute abnormality is suspected. Discharge Disposition Discharged home. Instructions * You were evaluated and treated for pneumonia and respiratory failure. Your pneumonia improved with IV antibiotic and you will complete therapy after discharge with amoxicillin/clavulanate (Augmentin). Take all antibiotic as prescribed. Do not skip doses even if you feel better. * You have significant sleep apnea which should improve with use of your home CPAP machine. Use at night and use any time you take a planned nap. * You likely have COPD, a condition of the lungs which makes them inefficiency. Follow-up with your paying teller in 2-3 weeks and ask about getting a pulmonary function to test to assess your overall lung function. * Be sure to schedule an appointment with a dentist to work on your infected tooth. * Weight loss will significantly improve your breathing and generally cardiopulmonary health. Talk to your doctor about strategies that can help with weight loss. Activity Instructions As tolerated. Appointments Follow-up with your primary care doctor in 3-5 days. Do not return to work until you have seen your doctor in follow-up. Discharge Diet: Heart Healthy Discharge Medications New Medications: Albuterol Sulfate (Ventolin HFA) 90 Mcg/1 Puff Hfa.aer.ad 2 PUFF IH Q4H PRN DYSPNEA #1 Ref 1 INHALER Acetaminophen (Acetaminophen) 325 Mg Tablet 650 MG PO Q6H PRN PAIN #0 Ref 0 TAB Continued Medications: Amoxicillin/Clavulanate Potassium (Augmentin 500mg/125mg) 1 Each Tablet 1 EACH PO 3 times a day Infection #9 Ref 0 TAB (This prescription has been renewed) Furosemide (Lasix) 20 Mg Tablet 20 MG PO DAILY Ref 0 TAB Hydrocodone/Acetaminophen (Addy 5mg/325mg) 1 Each Tablet 1-2 TAB PO Q6H PRN PAIN #12 Ref 0 TAB Losartan/Hydrochlorothiazide (Losartan-HCTZ 100-25 mg Tab) 1 Each Tablet 1 EACH PO DAILY TAB Follow up New Orders: CXR (CHEST PA/LAT (2 VIEW)* - Within 2 weeks Discharge Diagnosis See list above. Problems: Copies to: End of Report . SHAN REAL MD Aug 07, 2016 01:45
== END 2016-08-06 10:31 | disposition home or self-care (01) | DRG 871 ==
LOC: EDUNIT# 03:51 → ED 03:53 → MED/SURG 07:28 → ICU 08:42 → MED/SURG 08-03 14:27
PROVIDERS: ADMIT Internal Medicine; ATTEND Internal Medicine
DX: A41.9 Sepsis, unspecified organism (principal); J96.02 Acute respiratory failure with hypercapnia; J96.01 Acute respiratory failure with hypoxia; J18.9 Pneumonia, unspecified organism; J44.0 Chronic obstructive pulmonary disease with (acute) lower respiratory infection; J44.1 Chronic obstructive pulmonary disease with (acute) exacerbation; E66.2 Morbid (severe) obesity with alveolar hypoventilation; Z68.43 Body mass index [BMI] 50.0-59.9, adult; K04.7 Periapical abscess without sinus; I27.2 Other secondary pulmonary hypertension; I10 Essential (primary) hypertension
CPT/HCPCS: 36415; 71010; 71020; 80053; 80069; 80202; 81003; 81015; 82550; 82553; 82803; 83605; 83735; 83880; 84484; 85025; 85379; 85610; 85730; 86140; 87040; 87077; 87150; 87186; 87205; 93005; 93010; 93306; 94640; 94660; 94760; 96365; 96374; 99283; 99284; 99285; 99291

== ENCOUNTER → 2016-08-22 | Outpatient (CLI) | payer BC ==
[~2016-08-22] MED LIST changes: +AC325T PO; +ALBU8CC IH
--- NOTE | 2016-08-22 10:37 | Diagnostic Imaging Report ---
Indication: Shortness of breath PA and lateral chest Heart size and pulmonary vascularity are upper limits of normal. There is suboptimal inspiration. There are no infiltrates, effusions or pneumothoraces. Impression: No acute abnormalities in the chest Dictated by: Dictated on workstation # [id number]
== END ==
LOC: RAD 10:21
PROVIDERS: ATTEND Internal Medicine
DX: J18.9 Pneumonia, unspecified organism (principal)
CPT/HCPCS: 71020